=== PATIENT | female | born 1950 | race Caucasian/White ===

== ENCOUNTER → 2017-11-21 08:58 | Outpatient (CLI) | payer MEDICARE, SELFPAY ==
--- NOTE | 2017-11-21 09:00 | DI.RAD.S_ITS ---
PROCEDURE: XR LUMBAR SPINE MIN 4V INDICATIONS: Spinal stenosis with left lower extremity radiculopathy TECHNIQUE: 5 views of the lumbar spine were acquired. COMPARISON: None. FINDINGS: Bones: No fracture or focal osseous destruction. There is partially visualized levocurvature of the lower thoracic spine. Multilevel facet arthropathy. There is grade 1 anterolisthesis of L4 on L5. Uzwe-ho-rlhoghdo narrowing of the L4-L5 and L5-S1 disc space. There is mild narrowing of the remaining lumbar disc spaces. Mild bilateral hip degeneration. Pulse generator and leads project in the right pelvis Soft tissues: Overlying bowel gas pattern is normal. No suspicious soft tissue calcifications. Oblique images: No pars defects. IMPRESSION: Levocurvature of the lower thoracic spine, partially visualized. Grade 1 anterolisthesis of L4 and L5. Lower lumbar disc degeneration and facet arthropathy as above. Dictated by: Chico Back M.D. on 11/21/2017 at 10:48 Approved by: Chico Back M.D. on 11/21/2017 at 10:50
--- NOTE | 2017-11-21 09:02 | DI.CT.S_ITS ---
PROCEDURE: CT LUMBAR SPINE WO CON INDICATIONS: lower back pain with left sciatica TECHNIQUE: Noncontrast 3 mm thick sections acquired from the T12 level to the sacrum. Sagittal and coronal reformats were constructed. For radiation dose reduction, the following was used: automated exposure control. COMPARISON: [facility], MR, L-SPINE WITHOUT CONTRAST, 09/14/2009, 15:53. [facility], CT, KIDNEY/ URETER/BLADDER, 03/25/2012, 14:54. [facility], CR, XR LUMBAR SPINE MIN 4V, 11/21/2017, 8:40. FINDINGS: Image quality: Excellent. Bones: No acute vertebral body compression fractures. No suspicious lytic or blastic bony lesions. Central spinal caliber is of normal overall caliber. No pars defects. Mild dextroconvex scoliotic curvature is seen. Grade 1 anterolisthesis is seen at the L4-L5 level, without associated pars defects. At this level, there is mild shift to the right of L4 on L5, as on coronal image 27. T12-L1: Normal. L1-L2: Normal. L2-L3: Normal. L3-L4: The disc height is well preserved. Mild to moderate disc bulge is seen, which is eccentric to the right. There is mild right-sided and no significant left-sided neural foraminal narrowing seen. Mild central canal narrowing is seen. L4-L5: The disc height is relatively well-preserved. Mild generalized disc bulge is seen. Prominent facet hypertrophy is seen. There is moderate left-sided and moderate to severe right-sided neural foraminal narrowing seen. Moderate to severe central canal narrowing is seen. L5-S1: The disc height is relatively well-preserved. Minimal disc bulge is seen. There is moderate right-sided and mild left-sided facet hypertrophy seen. No significant neural foraminal or central canal narrowing are seen. Soft tissues: No retroperitoneal masses or hematomas. Visualized aorta is normal in caliber. A right-sided sacral stimulator is seen. IMPRESSION: Focal L4-L5 degenerative change, with milder degenerative changes seen elsewhere. Compared to 2009, the degenerative changes have progressed. Right-sided sacral stimulator. Dictated by: Mikie Fortune M.D. on 11/21/2017 at 9:54 Approved by: Mikie Fortune M.D. on 11/21/2017 at 10:00
== END ==
PROVIDERS: PCP Internal Medicine; Visit Provider Physical Medicine & Rehabilitation
DX: M51.16 Intervertebral disc disorders with radiculopathy, lumbar region (principal); M47.27 Other spondylosis with radiculopathy, lumbosacral region; M48.061 Spinal stenosis, lumbar region without neurogenic claudication; M16.0 Bilateral primary osteoarthritis of hip; M43.16 Spondylolisthesis, lumbar region
CPT/HCPCS: 72110; 72131

== ENCOUNTER 2017-11-28 08:52 | Outpatient (CLI) | payer MEDICARE, SELFPAY ==
--- NOTE | 2017-11-28 08:53 | DI.RAD.S_ITS ---
PROCEDURE: PAIN L/S TRANSFORAMINAL INJECT INDICATIONS: Spinal stenosis, FINDINGS: Fluoroscopic spot filming was performed to verify placement of spinal needles at the left L4-L5 foramen level(s), as labeled on the films. Appropriate location(s) of the needle tip(s) was confirmed by injection of iodinated contrast. IMPRESSION: Successful needle tip localization for left sided transforaminal epidural steroid injection at the L4-5 level. Dictated by: Man Talbert M.D. on 11/28/2017 at 15:37 Approved by: Mna Talbert M.D. on 11/28/2017 at 15:38
[2017-11-28 08:57] VITALS: BP 122/63; PULSE 70; RESP 18; TEMP 36.1; O2SAT 97
[2017-11-28 09:51] VITALS: BP 139/75; PULSE 70; RESP 16; O2SAT 96
[2017-11-28 09:56] VITALS: BP 126/56; PULSE 65; RESP 16; O2SAT 97
[2017-11-28] MEDS: IOPAMIDOL 15 ML VIAL 3 ML INJ (09:59)
[2017-11-28] MEDS: BUPIVACAINE 0.25% (PF) VIAL 2 ML INJ (09:59)
[2017-11-28] MEDS: methylPREDNISolone acetate 80 MG/ML VIAL INJ (09:59)
[2017-11-28] MEDS: DEXAMETHASONE 10 MG/ML VIAL 20 MG INJ (09:59)
[2017-11-28 10:01] VITALS: BP 118/57; PULSE 67; RESP 16; O2SAT 96
--- NOTE | 2017-11-28 10:07 | P.PCN_ITS ---
Procedures Date/Time Date of procedure: 11/28/17 Time of procedure: 10:06 General Procedure description: PREOP DIAGNOSIS 1. FORMAINAL STENOSIS WITH LE SYMPTOMS POST OP DIAGNOSIS 1. FORMAINAL STENOSIS WITH LE SYMPTOMS PROCEDURES 1. FLUOROSCOPICALLY GUIDED CONTRAST CONTROLLED TRANSFORAMINAL EPIDURAL STEROID INJECTION - LEFT L4/5 PHYSICIAN: Deni Ramos DO INDICATIONS: Casandra is referred by Dr. Granger for treatment of Foraminal Stenosis with Left LE Symptoms FINDINGS Foraminal Nerve Root Compression secondary to disc disease and facet hypertrophy DESCRIPTION OF PROCEDURE: Following denial of allergy and review of potential side effects and complications, including, but not necessarily limited to, infection, allergic reaction, local tissue breakdown, stroke, temporary or permanent nerve injury, paralysis, and possible , the patient indicated that the patient understood and agreed to proceed. An informed consent document was signed by the patient, witnessed by a nurse, and placed in the patient's chart. Additionally, other treatment options including medications, modalities, and physical therapy were reviewed with the patient. After review of previous anaesthesic history and IV conscious sedation the patient was deemed safe to proceed with todays procedure with IV conscious sedation as ASA class II designation. Safety time-out was performed to confirm patient ID, procedure to be performed and site of procedure. IV sedation was deemed unnecessary and thus not administered by the RN after DO order, during the course of the procedure while the patient remained responsive to all verbal commands In the prone position following sterile prep and drape of the lumbar region, the left L4/5 posterior neuroforamen was identified fluoroscopically. The skin was anesthetized via a 25-gauge 1.5-inch needle with 1% lidocaine solution. At this point, a 25-gauge 3.5-inch spinal needle was atraumatically introduced and advanced under fluoroscopic guidance through the posterior left L4/5 neuroforamen to approximately the anterior aspect of the canal. Depth was confirmed on lateral view. Following negative aspiration, injection of approximately 1.5 cc of Isovue 200 under live fluoroscopy in the AP view confirmed excellent flow along the nerve root, into the epidural space without vascular or intrathecal uptake observed Radiological data, including multiple fluoroscopic views of the lumbosacral spine, reveal a spinal needle at the left L4/5 posterior neuroforamen. Subsequent views show flow of contrast material flowing superiorly and inferiorly along the nerve root confirming epidural flow. Subsequently, a test dose of 1.5 cc of 1% lidocaine solution was administered and patient was observed for two minutes for signs or symptoms of complications , including abdominal pain, shortness of breath, bilateral upper or lower extremity weakness, nausea and vomiting, prior to steroid injection. At this point, a total of 3 cc or 20 mg of dexamethasone and 80mg Depo Medrol was injected without incident. The procedure tolerated the procedure well without signs or symptoms of complications prior to transfer to the recovery area continued monitoring without incident. The patient was then transferred to the recovery area where they were observed for an appropriate time after the injection. The patient reported a VAS score of 7 prior to the procedure and a post- procedure VAS of 0. Total Fluoroscopy Time: 20.9 seconds Total Conscious Sedation Time: 24min POST OP INSTRUCTIONS The patient was provided a Pain Log to continue to record their response to the target-specific procedure prior to follow-up visit with their referring physician. Additionally, specific post-injection care instructions and a contact number to our office were provided if concerns arise regarding possible complications associated with the procedure are suspected. Deni Ramos DO Complications: none
[2017-11-28 10:10] VITALS: BP 130/72; PULSE 64; RESP 16; O2SAT 97
== END 2017-11-28 10:18 ==
LOC: RAD 08:53
PROVIDERS: PCP Internal Medicine; Visit Provider Physical Medicine & Rehabilitation
DX: M48.062 Spinal stenosis, lumbar region with neurogenic claudication (principal); M51.16 Intervertebral disc disorders with radiculopathy, lumbar region
CPT/HCPCS: 64483; J1040; J1100; J2250

== ENCOUNTER → 2018-06-04 10:04 | Outpatient (CLI) | payer MEDICARE, SELFPAY ==
--- NOTE | 2018-06-04 | DI.MG.S_ITS ---
BILATERAL DIGITAL SCREENING MAMMOGRAM 3D/2D WITH CAD: 06/04/2018 CLINICAL: Routine screening. Comparison is made to exams dated: 05/23/2017 mammogram, 11/11/2008 mammogram, 05/18/2000 mammogram - [facility], 06/08/2017 stereotactic biopsy [facility], [facility]. The tissue of both breasts is heterogeneously dense. This may lower the sensitivity of mammography. Current study was also evaluated with a Computer Aided Detection (CAD) system. There are benign vascular calcifications in the right breast. There also is a benign biopsy clip in the right breast. No significant masses, calcifications, or other findings are seen in either breast. There has been no significant interval change. IMPRESSION: There is no mammographic evidence of malignancy. A 1 year screening mammogram is recommended. This exam was interpreted at Station ID: [id number]. NOTE: For mammograms, a report in lay terms will be sent to the patient. Approximately 15% of breast malignancies will not be visualized mammographically. In the management of a palpable breast mass, a negative mammogram must not discourage biopsy of a clinically suspicious lesion. Electronically Signed By: Jordy osborne/bayron:06/04/2018 12:34:13 letter sent: Normal Exam ACR BI-RADS Category 2: Benign Finding(s) [id number]
== END ==
PROVIDERS: PCP Internal Medicine; Visit Provider Internal Medicine
DX: Z12.31 Encounter for screening mammogram for malignant neoplasm of breast (principal)
CPT/HCPCS: 77063; 77067

== ENCOUNTER → 2019-03-19 10:54 | Outpatient (CLI) | payer MEDICARE, SELFPAY ==
[2019-03-19 12:14] LABS: Alanine Aminotransferase 26 IU/L (<35); Albumin 4.2 g/dL (3.5-5.0); Albumin Globulin Ratio 1.5 (1.0-2.8); Alkaline Phosphatase 100 U/L (38-126); Aspartate Aminotransferase 28 IU/L (14-36); Bilirubin Total 0.3 mg/dL (0.2-1.3); Blood Urea Nitrogen 18 mg/dL (7-17); Calcium 9.5 mg/dL (8.4-10.2); Carbon Dioxide 29 mmol/L (22-32); Chloride 107 mmol/L (98-107); Cholesterol 161 mg/dL (140-199); Estimated Glomerular Filt Rate > 60.0 mL/min (>60); Globulin 2.8 g/dL (1.7-4.1); Glucose 92 mg/dL (80-110); HDL Cholesterol 46 mg/dL (40-60); HEMOLYSIS < 15 (0-50); LDL Cholesterol Calculated 84 mg/dL (<100); Potassium 4.5 mmol/L (3.4-5.1); Sodium 144 mmol/L (137-145); Triglycerides 154 mg/dL (35-150)
[2019-03-19 12:42] LABS: Free T4, Direct Thyroxine 1.43 ng/dL (0.78-2.19)
[2019-03-19 12:56] LABS: Thyroid Stimulating Hormone 0.93 uIU/mL (0.47-4.68)
== END ==
PROVIDERS: PCP Internal Medicine; Visit Provider Internal Medicine
DX: E03.9 Hypothyroidism, unspecified (principal); E78.5 Hyperlipidemia, unspecified
CPT/HCPCS: 36415; 80053; 80061; 84439; 84443

== ENCOUNTER → 2019-03-22 16:18 | Outpatient (CLI) | payer MEDICARE, SELFPAY ==
--- NOTE | 2019-03-22 16:20 | DI.RAD.S_ITS ---
PROCEDURE: XR CHEST 2V INDICATIONS: Wheeze, cough x 3 weeks r/o pneumonia TECHNIQUE: 2 views of the chest were acquired. COMPARISON: [facility], , CHEST 1 VIEW, 11/12/2007, 9:19. FINDINGS: Surgical changes and devices: None. Lungs and pleura: Lungs are clear. No pleural effusions or pneumothorax. Mediastinum: Mediastinal contours are normal. Heart size is normal. Bones and chest wall: No suspicious bony abnormalities. Soft tissues appear unremarkable. IMPRESSION: Negative chest. No acute cardiopulmonary process is evident. Dictated by: Ketan Clayton M.D. on 03/22/2019 at 15:31 Approved by: Ketan Clayton M.D. on 03/22/2019 at 15:32
== END ==
PROVIDERS: Family Provider Internal Medicine; PCP Internal Medicine; Visit Provider Nurse Practitioner
DX: R05 Cough (principal); R06.2 Wheezing
CPT/HCPCS: 71046

== ENCOUNTER → 2019-04-07 13:41 | Outpatient (CLI) | payer MEDICARE, SELFPAY ==
[2019-04-07 17:22] LABS: Clostridium Difficile Tox PCR Negative for C. diff
== END ==
PROVIDERS: Family Provider Internal Medicine; PCP Internal Medicine; Referring Provider Internal Medicine; Visit Provider Internal Medicine
DX: R19.7 Diarrhea, unspecified (principal)
CPT/HCPCS: 87493

== ENCOUNTER → 2019-10-14 08:57 | Outpatient (CLI) | payer MEDICARE, SELFPAY ==
--- NOTE | 2019-10-14 09:01 | DI.RAD.S_ITS ---
PROCEDURE: XR LUMBAR SPINE MIN 4V INDICATIONS: lumbar pain TECHNIQUE: 5 views of the lumbar spine were acquired. COMPARISON: [facility], , XR LUMBAR SPINE MIN 4V, 11/21/2017, 8:40. FINDINGS: Bones: No fracture. Multilevel degenerative endplate sclerosis and spurring. Diffuse facet arthropathy. Grade 1 anterolisthesis of L4 on L5, unchanged. Moderate narrowing of the L4-L5 disc space. Mild narrowing of the remaining lumbar disc spaces. Partially visualized levocurvature of the thoracolumbar junction. Soft tissues: Overlying bowel gas pattern is normal. No suspicious soft tissue calcifications. Incidentally noted pulse generator and electrodes projecting in the right pelvis. Oblique images: No pars defects. IMPRESSION: Multilevel lumbar spondylosis, and grade 1 anterolisthesis of L4 on L5. No interval change since 11/21/17. Diffuse facet arthropathy. Dictated by: Chico Back M.D. on 10/14/2019 at 9:58 Approved by: Chico Back M.D. on 10/14/2019 at 9:59
== END ==
PROVIDERS: Family Provider Internal Medicine; PCP Internal Medicine; Referring Provider Physical Medicine & Rehabilitation; Visit Provider Physical Medicine & Rehabilitation
DX: M54.5 Low back pain (principal); M43.16 Spondylolisthesis, lumbar region; M47.27 Other spondylosis with radiculopathy, lumbosacral region
CPT/HCPCS: 72110

== ENCOUNTER → 2020-01-26 10:22 | Outpatient (CLI) | payer MEDICARE, SELFPAY ==
[2020-01-26 12:32] LABS: COVID19 -Nasal RAPID Negative (Negative)
== END ==
PROVIDERS: Family Provider Internal Medicine; PCP Internal Medicine; Visit Provider Physical Medicine & Rehabilitation
DX: Z11.59 Encounter for screening for other viral diseases (principal)
CPT/HCPCS: 87635; C9803

== ENCOUNTER 2020-01-27 09:05 | Outpatient (CLI) | payer MEDICARE, SELFPAY ==
--- NOTE | 2020-01-27 09:07 | DI.RAD.S_ITS ---
PROCEDURE: PAIN L INTERLAMINAR/CAUDAL INJ INDICATIONS: SPONDYLOSIS COMPARISON: [facility], CR, XR LUMBAR SPINE MIN 4V, 10/14/2019, 8:51. FINDINGS: Fluoroscopic spot filming was performed to verify placement of a spinal needle at the L4-L5 level, as labeled on the films. Appropriate location of the needle tip was confirmed by injection of iodinated contrast. IMPRESSION: Intraprocedural examination within normal limits. Dictated by: Mikie Fortune M.D. on 01/27/2020 at 9:49 Approved by: Mikie Fortune M.D. on 01/27/2020 at 9:50
[2020-01-27 09:16] VITALS: BP 141/69; PULSE 75; RESP 15; TEMP 36.5; O2SAT 97
[2020-01-27 09:39] VITALS: BP 187/95; PULSE 69; RESP 17; O2SAT 98
[2020-01-27] MEDS: BUPIVACAINE 0.25% (PF) VIAL 2 ML INJ (09:40)
[2020-01-27] MEDS: DEXAMETHASONE 10 MG/ML VIAL 20 MG INJ (09:41)
[2020-01-27] MEDS: IOPAMIDOL 15 ML VIAL 3 ML INJ (09:41)
[2020-01-27] MEDS: BETAMETHASONE 30 MG/5 ML MDV 6 MG INJ (09:41)
[2020-01-27 09:43] VITALS: BP 183/84; PULSE 64; RESP 17; O2SAT 99
--- NOTE | 2020-01-27 09:50 | P.PCN_ITS ---
Date/Time/Diagnoses Date of procedure: 01/27/20 Time of procedure: 09:50 Pre-procedure diagnosis: 1. HNP WITH RADICULAR FEATURES, 2. MULTILEVEL CENTRAL STENOSIS, Post-procedure diagnosis: same Procedure Notes Procedure: 1. FLUOROSCOPICALLY GUIDED CONTRAST CONTROLLED INTERLAMINAR EPIDURAL STEROID INJECTION -L4/5 Indications: Casandra is referred by Dr. Granger for treatment of Bilateral Foraminal Stenosis R>L LE symptoms. Physician: Deni Ramos Total Fluoroscopy time (seconds): 5 Total sedation minutes: 7 Complications: none Procedure in detail & Post-procedure care: FINDINGS Multilevel Central Spinal Stenosis with Nerve Root Compression DESCRIPTION OF PROCEDURE Fluoroscopically guided, contrast-controlled L4/5 translaminar epidural steroid injection. Following review of allergy and review of potential side effects and complications, including, but not necessarily limited to, infection, allergic reaction, local tissue breakdown, temporary as well as permanent nerve injury, paralysis, stroke and possible , the patient indicated that the patient understood and agreed to proceed. An informed consent document was signed by the patient, witnessed by a nurse, and placed in the patient's chart. Additionally, other treatment options including modalities, medications, and physical therapy were reviewed with the patient. After review of previous anaesthesic history and IV conscious sedation the patient was deemed safe to proceed with today?s procedure with IV conscious sedation as ASA class II designation. Safety time-out was performed to confirm patient ID, procedure to be performed and site of procedure. IV sedation was deemed unnecessary and thus not administered by the RN after DO order, titrated to patient comfort during the course of the procedure while the patient remained responsive to all verbal commands In the prone position, following sterile prep and drape of the lumbar region, the L4/5 translaminar space was identified fluoroscopically. The skin was anesthetized via a 25-gauge, 1.5inch needle with 1% lidocaine solution. At this point, a 22-gauge short bevel spinal needle was atraumatically introduced and advanced under fluoroscopic guidance into the region of the L4/5 translaminar space. Depth was confirmed on lateral view. Radiological data, including multiple fluoroscopic views of the lumbar spine, reveal a spinal needle at the L4/5 translaminar space. Lateral views then show placement of the needle in the epidural space. Subsequent views show contrast material flowing superiorly and inferiorly in the epidural space. No vascular or intrathecal uptake is observed. At this point, using loss of resistance technique with saline and air, the epidural space was entered. This was confirmed following negative aspiration with injection of approximately 1.5cc of Isovue 200, showing excellent epidural flow without vascular or intrathecal uptake. At this point, 1cc of 1% lidocaine solution combined with 3cc or 20mg of dexamethasone and 6mg betamethasone was injected without incident. The patient tolerated the procedure well without signs or symptoms of complications prior to transfer to the recovery area continued monitoring without incident. The patient was then transferred to the recovery area where they were observed for an appropriate period of time after the injection. The patient reported a VAS score of 6 prior to the procedure and a post- procedure VAS of 0. POST OP INSTRUCTIONS The patient was provided a Pain Log to continue to record their response to the target-specific procedure prior to follow-up visit with their referring physician. Additionally, specific post-injection care instructions and a contact number to our office were provided if concerns arise regarding possible complications associated with the procedure are suspected.
[2020-01-27 09:51] VITALS: BP 144/67; PULSE 71; RESP 17; O2SAT 96
[2020-01-27 09:56] VITALS: BP 148/72; PULSE 66; RESP 18; O2SAT 97
== END 2020-01-27 10:00 | disposition home or self-care (01) ==
LOC: RAD 09:06
PROVIDERS: Family Provider Internal Medicine; PCP Internal Medicine; Referring Provider Internal Medicine; Visit Provider Physical Medicine & Rehabilitation
DX: M51.16 Intervertebral disc disorders with radiculopathy, lumbar region (principal); M48.061 Spinal stenosis, lumbar region without neurogenic claudication
CPT/HCPCS: 62323; J0702; J1100; J2250; J3010

== ENCOUNTER 2020-10-11 17:32 | Emergency (ER) | payer MEDICARE, SELFPAY ==
[2020-10-11] VITALS (9 sets, daily range): BP systolic 139–150; BP diastolic 63–74; PULSE 67–82; RESP 14–24; TEMP 36.4; O2SAT 94–97; BMI 34.3
--- NOTE | 2020-10-11 17:44 | DI.RAD.S_ITS ---
PROCEDURE: XR CHEST 1V INDICATIONS: chest pain TECHNIQUE: One view of the chest was acquired. COMPARISON: [facility], CR, XR CHEST 2V, 03/22/2019, 16:17. FINDINGS: Surgical changes and devices: None. Lungs and pleura: Mild generalized interstitial prominence can be seen. No pleural effusions or pneumothorax. Mediastinum: Mediastinal contours appear normal. Heart size is mildly enlarged. Bones and chest wall: No suspicious bony lesions. Overlying soft tissues appear unremarkable. IMPRESSION: Mild cardiomegaly and interstitial prominence. Please consider early/mild CHF. Dictated by: Mikie Fortune M.D. on 10/11/2020 at 17:01 Approved by: Mikie Fortune M.D. on 10/11/2020 at 17:02
[2020-10-11 17:55] LABS: Add Manual Diff / Slide Review NO; Basophils Absolute Auto 100 /uL (0-100); Basophils Percent Auto 1.2 % (0-2); Eosinophils Absolute Auto 500 /uL (0-450); Hematocrit 40.1 % (36-46); Hemoglobin 13.4 g/dL (12.0-16.0); Lymphocytes Absolute Auto 2000 /uL (1100-4500); Lymphocytes Percent Auto 25.3 % (25-40); Mean Corpuscular HGB Conc 33.4 % (30-36); Mean Corpuscular Hemoglobin 30.4 PG (26-34); Mean Corpuscular Volume 91.2 fL (80-100); Monocytes Absolute Auto 600 /uL (0-900); Neutrophils Absolute Auto 4800 /uL (1500-7000); Neutrophils Percent Auto 60.5 % (50-75); Platelet Count 247 X10^3/uL (150-400); White Blood Cell Count 7.9 X10^3/uL (4.5-11.0)
[2020-10-11 18:02] LABS: Alanine Aminotransferase 32 IU/L (<35); Albumin 4.3 g/dL (3.5-5.0); Albumin Globulin Ratio 1.5 (1.0-2.8); Alkaline Phosphatase 93 U/L (38-126); Aspartate Aminotransferase 38 IU/L (14-36); BUN Creatinine Ratio 28.1 (6-22); Bilirubin Total 0.3 mg/dL (0.2-1.3); Blood Urea Nitrogen 25 mg/dL (7-17); Calcium 9.6 mg/dL (8.4-10.2); Carbon Dioxide 29 mmol/L (22-32); Chloride 104 mmol/L (98-107); Creatine Kinase 299 U/L (30-135); Estimated Glomerular Filt Rate > 60.0 mL/min (>60); Globulin 2.9 g/dL (1.7-4.1); Glucose 93 mg/dL (80-110); Lipase 146 U/L (23-300); Magnesium 2.1 mg/dL (1.6-2.3); Sodium 138 mmol/L (137-145); Total Protein 7.2 g/dL (6.3-8.2)
--- NOTE | 2020-10-11 18:04 | ED.CHESTPAIN ---
HPI - Chest Pain General Chief Complaint: Chest Pain Stated Complaint: High BP, Pain Radiating into Jaw Time Seen by Provider: 10/11/20 17:57 Source: patient Mode of arrival: Ambulatory Limitations: no limitations History of Present Illness HPI narrative: 70-year-old female nonsmoker with noncontributory medical history her in the chief complaint of bilateral jaw discomfort for the past few hours. She states that she was just sitting on the couch when she started feeling a bit funny, took her blood pressure and found it to be in the 180s which is quite high for her. She denies any headache or blurred vision. She denies any chest pain or shortness of breath. She denies nausea, vomiting or fever. She denies abdominal pain or trouble urinating. She has had no recent change in diet or medications but says she has been quite worn down from increased work duties and just retired. She recently took 0 week vacation which was somewhat helpful but has been on some large projects at home. Related Data Home Medications Medication Instructions Recorded Confirmed MULTIVITAMIN (One Daily 1 tab PO Q DAY #0 05/10/11 04/12/20 Multivitamin) Previous Rx's Medication Instructions Recorded bupropion HCl 150 mg 24 hr tablet, 150 mg PO QAM #30 tab 10/13/19 extended release celecoxib 200 mg capsule (Celebrex) 200 mg PO Q DAY #90 cap 05/28/20 fluoxetine 40 mg capsule 40 mg PO DAILY #90 cap 06/28/20 levothyroxine 112 mcg tablet 112 mcg PO QAM #90 tab 06/28/20 simvastatin 40 mg tablet 20 mg PO Q DAY #45 tab 06/28/20 trazodone 100 mg tablet 100 mg PO HS #90 tab 06/28/20 Allergies Allergy/AdvReac Type Severity Reaction Status Date / Time No Known Drug Allergies Allergy Verified 04/12/20 08:06 Review of Systems Review of Systems Narrative: GENERAL: Denies chills, fatigue, malaise, fever, sweats. HEENT: Denies sinus pain, ear pain, sore throat, difficulty swallowing, dizziness. RESPIRATORY: Denies dyspnea, cough, wheezing, hemoptysis, sputum. CARDIOVASCULAR: See HPI GASTROINTESTINAL: Denies nausea, vomiting, abdominal pain, diarrhea, constipation, melena. : Denies dysuria, frequency, incontinence, hematuria, urinary retention. MUSCULOSKELETAL: denies weakness, joint pain, or bony pain SKIN: Denies rash, skin lesions, or other NEUROLOGIC: Denies weakness, headache, numbness, change in speech, confusion, seizures, incoordination. PSYCHIATRIC: No concerning psychosocial issues. 12 point review of systems is negative except for those stated above 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 Calculus of kidney (05/01/13) Depression (05/10/11) Facet arthropathy, lumbar Hyperlipidemia (05/10/11) Lumbosacral spondylosis with radiculopathy Menopausal syndrome (04/08/03) Polymyalgia rheumatica (03/02/03) Sacral dysfunction Spondylolisthesis at L4-L5 level Systemic lupus erythematosus (12/19/01) Surgical History Status post breast biopsy Family History Mother Family history of TIAs Social History Smoking Status: Never smoker Smoking Status: Never smoker Substance Use Type: does not use Exam Narrative Exam Narrative: 70] year old patient appears stated age. Well-developed patient, in mild distress. HEAD: Atraumatic. Normocephalic. EYES: Pupils equal round and reactive. Extraocular motions intact. No scleral icterus. No injection or drainage. ENT: Nose without bleeding, purulent drainage. Throat without erythema, tonsillar hypertrophy or exudate. Airway patent. NECK: Trachea midline. Non tender CARDIOVASCULAR: Regular rate and rhythm without murmurs, gallops, or rubs. RESPIRATORY: Clear to auscultation. Breath sounds equal bilaterally. No wheezes, rales, or rhonchi. GASTROINTESTINAL: Abdomen soft, non-tender, nondistended. EXTREMITIES: No edema or joint tenderness. BACK: Nontender without deformity or crepitance. No flank tenderness. NEURO: AOx3. SKIN: No rash or erythema of visible areas Initial Vital Signs Initial Vital Signs: Vital Signs Temperature 97.6 F 10/11/20 17:44 Pulse Rate 82 10/11/20 17:44 Respiratory Rate 16 10/11/20 17:44 Blood Pressure 150/74 H 10/11/20 17:44 Pulse Oximetry 97 10/11/20 17:44 Scores HEART Score Heart Score history: Slightly Suspicious Heart Score EKG: Normal Heart Score Age: > or = 65 years old Heart Score risk factors: 1-2 risk factors Heart Score troponin: < or = to normal limit Heart Score Total: 3 Course Orders Ordered: ED Orders 10/11/20 17:44 XR chest 1V Stat EKG-12 Lead Stat 10/11/20 17:45 BNP [NT-proBNP (BNP-Adult 18+)] Stat Complete Blood Count AUTO DIFF Stat Comprehensive Metabolic Panel Stat Lipase Stat Magnesium Stat Troponin & CK Cardiac Panel Stat 10/11/20 19:17 EKG-12 Lead Stat 10/11/20 19:45 Troponin I Stat Vital Signs Vital signs: Vital Signs - 8 hr 10/11/20 17:44 10/11/20 18:05 10/11/20 18:17 Temperature 97.6 F Pulse Rate 82 75 77 Respiratory Rate 16 17 24 Blood Pressure 150/74 H 139/63 Pulse Oximetry 97 96 96 10/11/20 18:32 10/11/20 19:00 10/11/20 19:30 Temperature Pulse Rate 82 70 67 Respiratory Rate 14 23 18 Blood Pressure Pulse Oximetry 94 95 95 10/11/20 20:00 10/11/20 20:30 10/11/20 21:00 Temperature Pulse Rate 67 71 69 Respiratory Rate 19 20 20 Blood Pressure Pulse Oximetry 95 95 96 MDM - Chest Pain Lab Data Result diagrams: 10/11/20 17:45 10/11/20 17:45 Labs: Lab Results 10/11/20 10/11/20 10/11/20 Range/Units 17:45 17:45 17:45 WBC 7.9 (4.5-11.0) X10^3/uL RBC 4.40 (4.0-5.2) X10^6/uL Hgb 13.4 (12.0-16.0) g/dL Hct 40.1 (36-46) % MCV 91.2 (80-100) fL MCH 30.4 (26-34) PG MCHC 33.4 (30-36) % RDW 14.0 (11.6-14.8) % Plt Count 247 (150-400) X10^3/uL Neut % (Auto) 60.5 (50-75) % Lymph % (Auto) 25.3 (25-40) % Davis % (Auto) 7.0 (3-14) % Eos % (Auto) 6.0 H (2-4) % Baso % (Auto) 1.2 (0-2) % Neut # (Auto) 4800 (3309-5501) /uL Lymph # (Auto) 2000 (6296-8443) /uL Davis # (Auto) 600 (0-900) /uL Eos # (Auto) 500 H (0-450) /uL Baso # (Auto) 100 (0-100) /uL Sodium 138 (137-145) mmol/L Potassium 4.0 (3.4-5.1) mmol/L Chloride 104 (98-107) mmol/L Carbon Dioxide 29 (22-32) mmol/L BUN 25 H (7-17) mg/dL Creatinine 0.89 (0.52-1.04) mg/dL Estimated GFR > 60.0 (>60) mL/min BUN/Creatinine Ratio 28.1 H (6-22) Glucose 93 (80-110) mg/dL Calcium 9.6 (8.4-10.2) mg/dL Magnesium 2.1 (1.6-2.3) mg/dL Total Bilirubin 0.3 (0.2-1.3) mg/dL AST 38 H (14-36) IU/L ALT 32 (<35) IU/L Alkaline Phosphatase 93 (38-126) U/L Total Creatine Kinase 299 H (30-135) U/L CK-MB (CK-2) 1.01 (<2.37) ng/mL CK-MB (CK-2) Rel Index 0.3 L (1.5-5.0) % Troponin I < 0.012 (0.01-0.034) ng/mL NT-Pro-B Natriuret Pep 52 (<125) pg/mL Total Protein 7.2 (6.3-8.2) g/dL Albumin 4.3 (3.5-5.0) g/dL Globulin 2.9 (1.7-4.1) g/dL Albumin/Globulin Ratio 1.5 (1.0-2.8) Lipase 146 (23-300) U/L 10/11/20 Range/Units 19:45 WBC (4.5-11.0) X10^3/uL RBC (4.0-5.2) X10^6/uL Hgb (12.0-16.0) g/dL Hct (36-46) % MCV (80-100) fL MCH (26-34) PG MCHC (30-36) % RDW (11.6-14.8) % Plt Count (150-400) X10^3/uL Neut % (Auto) (50-75) % Lymph % (Auto) (25-40) % Davis % (Auto) (3-14) % Eos % (Auto) (2-4) % Baso % (Auto) (0-2) % Neut # (Auto) (4687-5613) /uL Lymph # (Auto) (8501-7581) /uL Davis # (Auto) (0-900) /uL Eos # (Auto) (0-450) /uL Baso # (Auto) (0-100) /uL Sodium (137-145) mmol/L Potassium (3.4-5.1) mmol/L Chloride (98-107) mmol/L Carbon Dioxide (22-32) mmol/L BUN (7-17) mg/dL Creatinine (0.52-1.04) mg/dL Estimated GFR (>60) mL/min BUN/Creatinine Ratio (6-22) Glucose (80-110) mg/dL Calcium (8.4-10.2) mg/dL Magnesium (1.6-2.3) mg/dL Total Bilirubin (0.2-1.3) mg/dL AST (14-36) IU/L ALT (<35) IU/L Alkaline Phosphatase (38-126) U/L Total Creatine Kinase (30-135) U/L CK-MB (CK-2) (<2.37) ng/mL CK-MB (CK-2) Rel Index (1.5-5.0) % Troponin I < 0.012 (0.01-0.034) ng/mL NT-Pro-B Natriuret Pep (<125) pg/mL Total Protein (6.3-8.2) g/dL Albumin (3.5-5.0) g/dL Globulin (1.7-4.1) g/dL Albumin/Globulin Ratio (1.0-2.8) Lipase (23-300) U/L Imaging Data Chest x-ray: Radiologist's Impression: [place] [id number] [place] [id number] ReportSigned Patient: Casandra Saleh JMR#: [id number]: 2Acct:[id number]/Sex: 70 / FDate of Service: 10/11/20Loc: EDAccession Number: [id number] Procedure: XR chest 1V Ordering Provider: Marshall Souza D.O. PROCEDURE: XR CHEST 1V INDICATIONS: chest pain TECHNIQUE: One view of the chest was acquired. COMPARISON: [facility], , XR CHEST 2V, 03/22/2019, 16:17. FINDINGS: Surgical changes and devices: None. Lungs and pleura: Mild generalized interstitial prominence can be seen. No pleural effusions or pneumothorax. Mediastinum: Mediastinal contours appear normal. Heart size is mildly enlarged. Bones and chest wall: No suspicious bony lesions. Overlying soft tissues appear unremarkable. IMPRESSION: Mild cardiomegaly and interstitial prominence. Please consider early/mild CHF. Dictated by: Mikie Fortune M.D. on 10/11/2020 at 17:01 Approved by: Mikie Fortune M.D. on 10/11/2020 at 17:02 ECG Data Interpretation: EKG is normal sinus rhythm rate [ 77] and free of any signs of ischemia or ectopy. No ST segmental elevation or depression. No T wave inversions MDM Narrative Medical decision making narrative: Multiple causes of chest pain considered including OH, PE, pneumothorax, pneumonia, aortic dissection, and pleurisy. Patient reports no radiation, no diaphoresis, no provocation with exertion, and no vomiting Multiple EKGs without occlusive findings. Troponin x2 negative. Resolution of symptoms nearly immediately upon arrival Patient's symptoms improved over duration of stay with above-stated therapies. Findings and discharge diagnosis discussed with patient/family followed by verbalization of understanding Return precautions discussed with patient/family whom verbalize understanding. Discharge Plan Departure Patient Disposition: Home Clinical Impression: Atypical chest pain Instructions: DI for Atypical Chest Pain Activity Restrictions/Additional Instructions: *You have been diagnosed with [atypical chest pain, physical exam, labs and EKGs are very reassuring] *What to do: *Please continue to take your regular medications as directed. [ ] New medication prescriptions sent to your pharmacy: [ ] [ ] New medication written as a paper prescription [x ] No new medications given *Please follow up with your primary care provider in 2-3 days, call for an appointment. Let them know you were seen in the Emergency Department and that we ask that you be seen in follow up. We will electronically transmit a record of today's note if your PCP is in our system *If you do not have a primary care provider please contact the [facility] Resource line at [phone]. They will ask some questions about your medical history and help get you set up with a doctor in the community. *Return to Emergency Department if you should have any new, worsening or concerning symptoms, such as [fever greater than 101 F, shaking chills, worsening pain, persistent vomiting or other bothersome symptoms] Prescriptions: No Action MULTIVITAMIN (One Daily Multivitamin) 1 tab PO Q DAY Qty: 0 RF: 0 celecoxib [Celebrex] 200 mg capsule 200 mg PO Q DAY Qty: 90 RF: 3 levothyroxine 112 mcg tablet 112 mcg PO QAM Qty: 90 RF: 0 fluoxetine 40 mg capsule 40 mg PO DAILY Qty: 90 RF: 0 trazodone 100 mg tablet 100 mg PO HS Qty: 90 RF: 0 simvastatin 40 mg tablet 20 mg PO Q DAY Qty: 45 RF: 0 bupropion HCl 150 mg tablet extended release 24 hr 150 mg PO QAM Qty: 30 RF: 7 Referrals: Josue Granger MD [Primary Care Provider] -
[2020-10-11 18:14] LABS: Troponin I < 0.012 ng/mL (0.01-0.034)
[2020-10-11 18:17] LABS: CKMB % Relative Index 0.3 % (1.5-5.0); Creatine Kinase MB 1.01 ng/mL (<2.37); HEMOLYSIS 26 (0-50)
[2020-10-11 18:44] LABS: NT-proBNP (BNP-Adult 18+) 52 pg/mL (<125)
[2020-10-11 20:18] LABS: Troponin I < 0.012 ng/mL (0.01-0.034)
== END 2020-10-11 21:16 | disposition home or self-care (01) ==
PROVIDERS: Emergency Medicine; Emergency Provider Emergency Medicine; Family Provider Internal Medicine; PCP Internal Medicine
DX: R07.89 Other chest pain (principal); I10 Essential (primary) hypertension
CPT/HCPCS: 36415; 71045; 80053; 82550; 82553; 83690; 83735; 83880; 84484; 85025; 93005; 93010; 99283; 99284

== ENCOUNTER → 2020-10-16 08:16 | Outpatient (CLI) | payer MEDICARE, SELFPAY ==
--- NOTE | 2020-10-16 08:21 | DI.MG.S_ITS ---
BILATERAL DIGITAL SCREENING MAMMOGRAM 3D/2D WITH CAD: 10/16/2020 CLINICAL: Routine screening. Comparison is made to exams dated: 06/04/2018 mammogram, 05/30/2017 mammogram, and 05/23/2017 mammogram - [facility]. The tissue of both breasts is heterogeneously dense. This may lower the sensitivity of mammography. Current study was also evaluated with a Computer Aided Detection (CAD) system. There are benign vascular calcifications in the right breast. There also is a biopsy clip in the right breast. No significant masses, calcifications, or other findings are seen in either breast. There has been no significant interval change. IMPRESSION: BENIGN There is no mammographic evidence of malignancy. A 1 year screening mammogram is recommended. This exam was interpreted at Station ID: [id number]. NOTE: For mammograms, a report in lay terms will be sent to the patient. Approximately 15% of breast malignancies will not be visualized mammographically. In the management of a palpable breast mass, a negative mammogram must not discourage biopsy of a clinically suspicious lesion. Electronically Signed By: Erik donohue/bayron:10/17/2020 21:42:56 letter sent: Normal Exam ACR BI-RADS Category 2: Benign Finding(s) 3342F
[2020-10-16 10:16] LABS: C-Reactive Protein Quant 1.6 mg/dL (<1.0); Cholesterol 186 mg/dL (140-199); HDL Cholesterol 59 mg/dL (40-60); LDL Cholesterol Calculated 103 mg/dL (<100); Triglycerides 118 mg/dL (35-150)
[2020-10-16 10:18] LABS: Erythrocyte Sedimentation Rate 5 MM/HR (0-20)
[2020-10-16 10:40] LABS: Thyroid Stimulating Hormone 1.56 uIU/mL (0.47-4.68)
[2020-10-16 10:41] LABS: Free T4, Direct Thyroxine 1.41 ng/dL (0.78-2.19)
== END ==
PROVIDERS: Family Provider Internal Medicine; PCP Internal Medicine; Referring Provider Internal Medicine; Visit Provider Internal Medicine
DX: Z12.31 Encounter for screening mammogram for malignant neoplasm of breast (principal); E03.9 Hypothyroidism, unspecified; E78.5 Hyperlipidemia, unspecified; M32.9 Systemic lupus erythematosus, unspecified; M35.3 Polymyalgia rheumatica
CPT/HCPCS: 36415; 77063; 77067; 80061; 84439; 84443; 85651; 86140

== ENCOUNTER → 2021-03-02 09:16 | Outpatient (CLI) | payer MEDICARE, SELFPAY ==
[2021-03-02 10:08] LABS: COVID19 -Nasal RAPID Negative (Negative)
== END ==
PROVIDERS: Family Provider Internal Medicine; PCP Internal Medicine; Visit Provider Surgery
DX: Z01.812 Encounter for preprocedural laboratory examination (principal); Z20.822 Contact with and (suspected) exposure to COVID-19
CPT/HCPCS: 87635; C9803

== ENCOUNTER 2021-03-03 08:13 | Day surgery (SDC) | payer MEDICARE, SELFPAY ==
[2021-03-03 08:27] VITALS: BP 138/77; PULSE 92; RESP 18; TEMP 36.2; O2SAT 92
[2021-03-03 08:29] VITALS: BMI 34.3
[2021-03-03] MEDS: LACTATED RINGERS 1,000 ML 42 ML IV (08:36)
--- NOTE | 2021-03-03 09:46 | PM.HP.1 ---
History of Present Illness History of Present Illness Date Patient Seen: 03/03/21 Time Patient Seen: 09:46 Chief complaint: SDC Narrative: 71-year-old woman who is due for a colonoscopy. She is not sure when her last colonoscopy was but she knows she is due now. 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 Calculus of kidney (05/01/13) Depression (05/10/11) Facet arthropathy, lumbar Hyperlipidemia (05/10/11) Lumbosacral spondylosis with radiculopathy Menopausal syndrome (04/08/03) Polymyalgia rheumatica (03/02/03) Sacral dysfunction Spondylolisthesis at L4-L5 level Systemic lupus erythematosus (12/19/01) Surgical History Status post breast biopsy Family & Social History Family History Mother Family history of TIAs Social History: household members spouse Tobacco & Substance use: Smoking Status Never smoker alcohol intake never Substance Use Type does not use Meds Home Medications and Allergies Home Medications Medication Instructions Recorded Confirmed Type bupropion HCl 150 mg 24 hr tablet, 150 mg PO QAM #30 tab 10/13/19 03/03/21 Rx extended release celecoxib 200 mg capsule (Celebrex) 200 mg PO Q DAY #90 cap 05/28/20 03/03/21 Rx fluoxetine 40 mg capsule 40 mg PO DAILY #90 cap 06/28/20 03/03/21 Rx levothyroxine 112 mcg tablet 112 mcg PO QAM #90 tab 06/28/20 10/25/20 Rx simvastatin 40 mg tablet 20 mg PO Q DAY #45 tab 06/28/20 10/25/20 Rx trazodone 100 mg tablet 100 mg PO HS #90 tab 06/28/20 03/03/21 Rx Allergies Allergy/AdvReac Type Severity Reaction Status Date / Time No Known Drug Allergies Allergy Verified 03/03/21 08:24 Exam Vital Signs (past 8 hours): - 03/03/21 08:27 Temperature 97.2 F L Pulse Rate 92 H Respiratory Rate 18 Blood Pressure 138/77 Pulse Oximetry 92 Oxygen Delivery Method Room Air Const General: healthy appearing Eyes General: appearance normal, both eyes and all related structures Resp Effort & Inspection: normal respiratory effort Assessment & Plan Assessment and plan (1) Colon cancer screening: Status: Acute Plan Plan for colonoscopy. Risks and benefits reviewed. COVID-19 COVID-19 status: Negative Result date/Date tested (Pos, Neg/Pending): 03/02/21 Time Spent With Patient Critical Care time: I spent a total of [] minutes of critical care time on this patient's care today; this time is exclusive of procedural time.
[2021-03-03] MEDS: fentaNYL 250 MCG/5 ML INJ IV (09:50)
[2021-03-03] MEDS: MIDAZOLAM 5 MG/5 ML VIAL IV (09:51)
--- NOTE | 2021-03-03 10:16 | PM.OP.COLON ---
Operative Date/Time/Diagnoses Date of procedure: 03/03/21 Time of procedure: 10:17 Pre-op diagnosis: Colon cancer screening Post-op diagnosis: same Procedure & Clinicians Study performed: Colonoscopy Same procedure as scheduled: Yes Indications: Colon cancer screening Surgeon: Caleb Fish Procedure Notes SCOAP/Timeout: Yes Procedure in detail: Procedure: The patient was brought to the endoscopy suite, placed in left lateral decubitus position. The patient was connected to monitoring devices. A time-out was performed. Sedation was administered. Once the patient was adequately sedated, a digital rectal exam was performed and was normal. The scope was then inserted and advanced to the cecum where the appendiceal orifice was identified and photographed. The scope was then slowly withdrawn over greater than 6 minutes. Mucosa was thoroughly inspected. There was extensive sigmoid colon diverticulosis. The scope was retroflexed in the rectum. No abnormalities were noted other than moderate internal hemorrhoids. The scope was straightened and removed. The patient was awakened and brought to recovery. Versed: 3 mg Fentanyl: 150 mcg EBL: 0 Findings: Sigmoid colon diverticulosis Scope withdrawal time: 10 Sedation minutes: 24 Findings: divertiulosis Specimen(s): none sent Post-procedure Recommendations: Colonoscopy in 10 years Disposition: PACU
[2021-03-03 10:18] VITALS: BP 147/67; PULSE 81; RESP 16; O2SAT 95
[2021-03-03 10:23] VITALS: BP 153/69; PULSE 80; RESP 13; TEMP 36.6; O2SAT 96
[2021-03-03 10:28] VITALS: BP 139/59; PULSE 88; RESP 25; O2SAT 92
--- NOTE | 2021-03-03 10:37 | SUR.PHASEI ---
assumed care of pt, stable pacu stay, to opd.
[2021-03-03 10:38] VITALS: BP 127/68; PULSE 77; RESP 11; TEMP 36.9; O2SAT 95
== END 2021-03-03 11:00 | disposition home or self-care (01) ==
PROVIDERS: Family Provider Internal Medicine; PCP Internal Medicine; Referring Provider Surgery; Visit Provider Surgery
PROC: 0DJD8ZZ Inspection of Lower Intestinal Tract, Via Natural or Artificial Opening Endoscopic (ICD-10-PCS; CPT 45378; principal; 2021-03-03 09:15)
DX: Z12.11 Encounter for screening for malignant neoplasm of colon (principal); E03.9 Hypothyroidism, unspecified; F32.9 Major depressive disorder, single episode, unspecified; E78.5 Hyperlipidemia, unspecified; M35.3 Polymyalgia rheumatica; M32.9 Systemic lupus erythematosus, unspecified; K64.8 Other hemorrhoids; K57.30 Diverticulosis of large intestine without perforation or abscess without bleeding
CPT/HCPCS: G0121; 99152; J2250; J3010

== ENCOUNTER → 2021-05-13 10:50 | Outpatient (CLI) | payer MEDICARE, SELFPAY ==
[2021-05-13 11:23] LABS: Add Manual Diff / Slide Review NO; Basophils Absolute Auto 0 /uL (0-100); Basophils Percent Auto 0.7 % (0-2); Eosinophils Absolute Auto 400 /uL (0-450); Eosinophils Percent Auto 5.6 % (2-4); Hematocrit 40.6 % (36-46); Hemoglobin 13.6 g/dL (12.0-16.0); Lymphocytes Absolute Auto 1200 /uL (1100-4500); Lymphocytes Percent Auto 17.6 % (25-40); Mean Corpuscular HGB Conc 33.5 % (30-36); Mean Corpuscular Hemoglobin 30.8 PG (26-34); Mean Corpuscular Volume 92.1 fL (80-100); Monocytes Absolute Auto 400 /uL (0-900); Monocytes Percent Auto 6.8 % (3-14); Neutrophils Absolute Auto 4600 /uL (1500-7000); Neutrophils Percent Auto 69.3 % (50-75); Platelet Count 245 X10^3/uL (150-400); Red Blood Cell Count 4.41 X10^6/uL (4.0-5.2); Red Cell Distribution Width 14.4 % (11.6-14.8); White Blood Cell Count 6.6 X10^3/uL (4.5-11.0)
[2021-05-13 11:42] LABS: Erythrocyte Sedimentation Rate 6 MM/HR (0-20)
[2021-05-13 11:49] LABS: Alanine Aminotransferase 23 IU/L (<35); Albumin 4.2 g/dL (3.5-5.0); Albumin Globulin Ratio 1.4 (1.0-2.8); Alkaline Phosphatase 84 U/L (38-126); Aspartate Aminotransferase 27 IU/L (14-36); BUN Creatinine Ratio 23.7 (6-22); Bilirubin Total 0.4 mg/dL (0.2-1.3); Blood Urea Nitrogen 23 mg/dL (7-17); C-Reactive Protein Quant 0.6 mg/dL (<1.0); Calcium 8.9 mg/dL (8.4-10.2); Carbon Dioxide 30 mmol/L (22-32); Chloride 106 mmol/L (98-107); Creatine Kinase 67 U/L (30-135); Estimated Glomerular Filt Rate 56.9 mL/min (>60); Glucose 92 mg/dL (80-110); HEMOLYSIS < 15 (0-50); Potassium 4.3 mmol/L (3.4-5.1); Sodium 140 mmol/L (137-145); Total Protein 7.2 g/dL (6.3-8.2)
[2021-05-13 12:01] LABS: Free T4, Direct Thyroxine 1.49 ng/dL (0.78-2.19)
[2021-05-13 12:15] LABS: Thyroid Stimulating Hormone 1.47 uIU/mL (0.47-4.68)
== END ==
PROVIDERS: Family Provider Internal Medicine; PCP Internal Medicine; Referring Provider Internal Medicine; Visit Provider Internal Medicine
DX: E03.9 Hypothyroidism, unspecified (principal); E78.2 Mixed hyperlipidemia; F32.9 Major depressive disorder, single episode, unspecified; R53.83 Other fatigue
CPT/HCPCS: 36415; 80053; 82550; 84439; 84443; 85025; 85651; 86140

== ENCOUNTER → 2021-10-10 13:36 | Outpatient (CLI) | payer MEDICARE, SELFPAY ==
[2021-10-10 14:23] LABS: COVID19 -Nasal RAPID Negative (Negative)
== END ==
PROVIDERS: Family Provider Internal Medicine; PCP Internal Medicine; Visit Provider Physical Medicine & Rehabilitation
DX: Z20.822 Contact with and (suspected) exposure to COVID-19 (principal)
CPT/HCPCS: 87635; C9803

== ENCOUNTER 2021-10-11 13:17 | Outpatient (CLI) | payer MEDICARE, SELFPAY ==
--- NOTE | 2021-10-11 13:20 | DI.RAD.S_ITS ---
PROCEDURE: PAIN L INTERLAMINAR/CAUDAL INJ INDICATIONS: SPONDYLOSIS COMPARISON: [facility], XA, PAIN L INTERLAMINAR/CAUDAL INJ, 01/27/2020, 9:40. FINDINGS: Fluoroscopic spot filming was performed to verify placement of a spinal needle at the L4-L5 level, as labeled on the films. Appropriate location of the needle tip was confirmed by injection of iodinated contrast. IMPRESSION: Intraprocedural examination within normal limits. Dictated by: Mikie Fortune M.D. on 10/11/2021 at 13:36 Approved by: Mikie Fortune M.D. on 10/11/2021 at 13:36
[2021-10-11 13:34] VITALS: BP 150/88; PULSE 82; RESP 19; TEMP 37; O2SAT 97
[2021-10-11 14:00] VITALS: BP 145/71; PULSE 75; RESP 20; O2SAT 97
[2021-10-11 14:05] VITALS: BP 153/72; PULSE 72; RESP 23; O2SAT 97
[2021-10-11 14:13] VITALS: BP 155/76; PULSE 79; RESP 18; O2SAT 97
--- NOTE | 2021-10-11 14:14 | P.PCN_ITS ---
Date/Time/Diagnoses Date of procedure: 10/11/21 Time of procedure: 14:14 Pre-procedure diagnosis: 1. HNP WITH RADICULAR FEATURES, 2. MULTILEVEL CENTRAL STENOSIS, Post-procedure diagnosis: same Procedure Notes Procedure: 1. FLUOROSCOPICALLY GUIDED CONTRAST CONTROLLED INTERLAMINAR EPIDURAL STEROID INJECTION -L4/5 Indications: Casandra is referred by Dr. Granger for treatment of Bilateral Foraminal Stenosis R>L LE symptoms. Physician: Deni Ramos Total Fluoroscopy time (seconds): 6 Total sedation minutes: 0 Complications: none Procedure in detail & Post-procedure care: FINDINGS Multilevel Central Spinal Stenosis with Nerve Root Compression DESCRIPTION OF PROCEDURE Fluoroscopically guided, contrast-controlled L4/5 translaminar epidural steroid injection. Following review of allergy and review of potential side effects and complications, including, but not necessarily limited to, infection, allergic reaction, local tissue breakdown, temporary as well as permanent nerve injury, paralysis, stroke and possible , the patient indicated that the patient understood and agreed to proceed. An informed consent document was signed by the patient, witnessed by a nurse, and placed in the patient's chart. Additionally, other treatment options including modalities, medications, and physical therapy were reviewed with the patient. After review of previous anaesthesic history and IV conscious sedation the patient was deemed safe to proceed with today?s procedure with IV conscious sedation as ASA class II designation. Safety time-out was performed to confirm patient ID, procedure to be performed and site of procedure. IV sedation was deemed unnecessary and thus not administered by the RN after DO order, titrated to patient comfort during the course of the procedure while the patient remained responsive to all verbal commands In the prone position, following sterile prep and drape of the lumbar region, the L4/5 translaminar space was identified fluoroscopically. The skin was anesthetized via a 25-gauge, 1.5inch needle with 1% lidocaine solution. At this point, a 22-gauge short bevel spinal needle was atraumatically introduced and advanced under fluoroscopic guidance into the region of the L4/5 translaminar space. Depth was confirmed on lateral view. Radiological data, including multiple fluoroscopic views of the lumbar spine, reveal a spinal needle at the L4/5 translaminar space. Lateral views then show placement of the needle in the epidural space. Subsequent views show contrast material flowing superiorly and inferiorly in the epidural space. No vascular or intrathecal uptake is observed. At this point, using loss of resistance technique with saline and air, the epidural space was entered. This was confirmed following negative aspiration with injection of approximately 1.5cc of Isovue 200, showing excellent epidural flow without vascular or intrathecal uptake. At this point, 1cc of 1% lidocaine solution combined with 3cc or 20mg of dexamethasone and 6mg betamethasone was injected without incident. The patient tolerated the procedure well without signs or symptoms of complications prior to transfer to the recovery area continued monitoring without incident. The patient was then transferred to the recovery area where they were observed for an appropriate period of time after the injection. The patient reported a VAS score of 6 prior to the procedure and a post- procedure VAS of 0. POST OP INSTRUCTIONS The patient was provided a Pain Log to continue to record their response to the target-specific procedure prior to follow-up visit with their referring physician. Additionally, specific post-injection care instructions and a contact number to our office were provided if concerns arise regarding possible complications associated with the procedure are suspected.
== END 2021-10-11 14:15 | disposition home or self-care (01) ==
PROVIDERS: Family Provider Internal Medicine; PCP Internal Medicine; Referring Provider Physical Medicine & Rehabilitation; Visit Provider Physical Medicine & Rehabilitation
DX: M51.16 Intervertebral disc disorders with radiculopathy, lumbar region; M48.061 Spinal stenosis, lumbar region without neurogenic claudication
CPT/HCPCS: 62323; J0702; J1100

== ENCOUNTER 2021-12-27 15:18 | Outpatient (CLI) | payer MEDICARE, SELFPAY ==
[2021-12-27] VITALS (7 sets, daily range): BP systolic 148–191; BP diastolic 66–83; PULSE 68–75; RESP 14–20; TEMP 36.2; O2SAT 97–100
--- NOTE | 2021-12-27 15:20 | DI.RAD.S_ITS ---
PROCEDURE: PAIN L/SI FACET INJ/BLK 1STL INDICATIONS: SPONDYLOSIS COMPARISON: [facility], XA, PAIN L INTERLAMINAR/CAUDAL INJ, 10/11/2021, 14:03. FINDINGS: Fluoroscopic spot filming was performed to verify placement of spinal needles on the right at the L4-L5 and L5-S1 levels, as labeled on the films. Appropriate location of the needle tips was confirmed by injection of iodinated contrast. IMPRESSION: Intraprocedural examination demonstrating appropriate positions of the needles. Dictated by: Mikie Fortune M.D. on 12/27/2021 at 16:55 Approved by: Mikie Fortune M.D. on 12/27/2021 at 16:56
[2021-12-27] MEDS: IOPAMIDOL 15 ML VIAL 3 ML INJ (16:20)
[2021-12-27] MEDS: BETAMETHASONE 30 MG/5 ML MDV 12 MG INJ (16:21)
[2021-12-27] MEDS: BUPIVACAINE 0.5% MDV 5 ML SUBCUT (16:21)
--- NOTE | 2021-12-27 16:39 | P.PCN_ITS ---
Date/Time/Diagnoses Date of procedure: 12/27/21 Time of procedure: 16:39 Pre-procedure diagnosis: 1. FACET ARTHROPATHY, 2. AXIAL LBP, 3. MULTILEVEL DDD Post-procedure diagnosis: same Procedure Notes Procedure: 1. FLUOROSCOPICALLY GUIDED CONTRAST CONTROLLED FACET JOINT INJECTIONS RIGHT L4/5, L5/S1 Indications: Casandra is referred by Dr. Granger for treatment of Axial LBP Physician: Deni Ramos Total Fluoroscopy time (seconds): 6 Total sedation minutes: 0 Complications: none Procedure in detail & Post-procedure care: FINDINGS Multilevel Facet Arthropathy with Clinically significant axial LBP DESCRIPTION OF PROCEDURE Fluoroscopically guided, contrast-controlled right L4/5, L5/S1 facet joint injections. Following review of allergy and review of potential side effects and complications, including, but not necessarily limited to, infection, allergic reaction, local tissue breakdown, stroke, temporary or permanent nerve injury, paralysis, and possible , the patient indicated that the patient understood and agreed to proceed. An informed consent document was signed by the patient, witnessed by a nurse, and placed in the patient's chart. Additionally, other treatment options including medications, modalities, and physical therapy were reviewed with the patient. After review of previous anaesthesic history and IV conscious sedation the patient was deemed safe to proceed with today?s procedure with IV conscious sedation as ASA class II designation. Safety time-out was performed to confirm patient ID, procedure to be performed and site of procedure. IV sedation was deemed unnecessary and thus not administered by the RN after DO order, titrated to patient comfort during the course of the procedure while the patient remained responsive to all verbal commands. In the prone position, following sterile prep and drape of the lumbar region, the posterior aspect of the right L4/5, L5/S1 facet joints were identified fluoroscopically. The skin was anesthetized via a 25-gauge 1.5-inch needle with 1% lidocaine solution into the corresponding facet joints. At this point, a 22- gauge 3.5-inch spinal needle was atraumatically introduced and advanced under fluoroscopic guidance into the corresponding facet joints. Following negative aspiration, injections of approximately 0.2-cc of Isovue 200 confirmed interarticular placement without vascular uptake. Radiological data, including multiple fluoroscopic views of the lumbosacral spine, reveal a spinal needle at the right L4/5, L5/S1 facet joints. Subsequent views show flow of contrast material both superiorly and inferiorly within the joint space without vascular or intrathecal uptake. At this point, a total of 0.5cc including a mixture of 0.25cc Marcaine and 0.25cc betamethasone was injected without complication into each of the corresponding facet joints. The procedure tolerated the procedure well without signs or symptoms of complications prior to transfer to the recovery area continued monitoring without incident. The patient was then transferred to the recovery area where they were observed for an appropriate period of time after the injection. The patient reported a VAS score of 7 prior to the procedure and a post-procedure VAS of 0. POST OP INSTRUCTIONS The patient was provided a Pain Log to continue to record their response to the target-specific procedure prior to follow-up visit with their referring physician. Additionally, specific post-injection care instructions and a contact number to our office were provided if concerns arise regarding possible complications associated with the procedure are suspected.
== END 2021-12-27 16:43 | disposition home or self-care (01) ==
PROVIDERS: Family Provider Internal Medicine; PCP Internal Medicine; Referring Provider Physical Medicine & Rehabilitation; Visit Provider Physical Medicine & Rehabilitation
DX: M47.816 Spondylosis without myelopathy or radiculopathy, lumbar region (principal); M47.817 Spondylosis without myelopathy or radiculopathy, lumbosacral region; M51.36 Other intervertebral disc degeneration, lumbar region; M51.37 Other intervertebral disc degeneration, lumbosacral region
CPT/HCPCS: 64493; 64494; J0702

== ENCOUNTER 2022-05-08 11:34 | Emergency (ER) | payer MEDICARE, SELFPAY ==
[2022-05-08 11:51] VITALS: BP 218/92; PULSE 84; RESP 16; TEMP 36.7; O2SAT 98; BMI 36.0
--- NOTE | 2022-05-08 11:58 | DI.RAD.S_ITS ---
PROCEDURE: XR CHEST 1V INDICATIONS: chest pain TECHNIQUE: One view of the chest was acquired. COMPARISON: [facility], CR, XR CHEST 1V, 10/11/2020, 17:52. [facility], CR, XR CHEST 2V, 03/22/2019, 16:17. FINDINGS: Surgical changes and devices: None. Lungs and pleura: Lungs are clear. No pleural effusions or pneumothorax. Mediastinum: Mediastinal contours appear normal. Heart size is normal. Bones and chest wall: No suspicious bony lesions. Overlying soft tissues appear unremarkable. IMPRESSION: No acute cardiopulmonary process. Dictated by: Kavon Renee M.D. on 05/08/2022 at 12:38 Approved by: Kavon Renee M.D. on 05/08/2022 at 12:38
[2022-05-08 12:00] VITALS: BP 180/80; PULSE 78; RESP 17; O2SAT 98
[2022-05-08 12:15] LABS: Add Manual Diff / Slide Review NO; Basophils Absolute Auto 100 /uL (0-100); Basophils Percent Auto 1.2 % (0-2); Eosinophils Absolute Auto 300 /uL (0-450); Eosinophils Percent Auto 3.7 % (2-4); Hematocrit 41.6 % (36-46); Hemoglobin 13.7 g/dL (12.0-16.0); Lymphocytes Absolute Auto 1800 /uL (1100-4500); Lymphocytes Percent Auto 22.7 % (25-40); Mean Corpuscular Hemoglobin 29.6 PG (26-34); Mean Corpuscular Volume 89.7 fL (80-100); Monocytes Absolute Auto 700 /uL (0-900); Monocytes Percent Auto 8.8 % (3-14); Neutrophils Absolute Auto 5100 /uL (1500-7000); Neutrophils Percent Auto 63.6 % (50-75); Platelet Count 296 X10^3/uL (150-400); Red Blood Cell Count 4.64 X10^6/uL (4.0-5.2)
[2022-05-08 12:36] LABS: Alanine Aminotransferase 36 IU/L (<35); Albumin 4.3 g/dL (3.5-5.0); Albumin Globulin Ratio 1.3 (1.0-2.8); Alkaline Phosphatase 126 U/L (38-126); Aspartate Aminotransferase 38 IU/L (14-36); BUN Creatinine Ratio 22.1 (6-22); Bilirubin Total 0.5 mg/dL (0.2-1.3); Blood Urea Nitrogen 17 mg/dL (7-17); Calcium 8.9 mg/dL (8.4-10.2); Carbon Dioxide 31 mmol/L (22-32); Chloride 102 mmol/L (98-107); Creatine Kinase 120 U/L (30-135); Estimated Glomerular Filt Rate > 60 mL/min (>60); Globulin 3.4 g/dL (1.7-4.1); Glucose 93 mg/dL (80-110); Lipase 78 U/L (23-300); Magnesium 2.1 mg/dL (1.6-2.3); Potassium 4.1 mmol/L (3.4-5.1); Sodium 137 mmol/L (137-145); Total Protein 7.7 g/dL (6.3-8.2)
[2022-05-08 12:38] LABS: HEMOLYSIS 60 (0-50)
[2022-05-08 12:44] LABS: NT-proBNP (BNP-Adult 18+) 49 pg/mL (<125)
[2022-05-08 12:47] LABS: Troponin I < 0.012 ng/mL (0.01-0.034)
[2022-05-08 12:50] LABS: CKMB % Relative Index 0.6 % (1.5-5.0); Creatine Kinase MB 0.66 ng/mL (<2.37)
[2022-05-08 12:53] LABS: INR 1.1 (0.9-1.3)
[2022-05-08 12:55] LABS: PTT Partial Thromboplastin Tim 33 SECONDS (26-36)
[2022-05-08] MEDS: KETOROLAC 30 MG/ML VIAL 15 MG IV (13:15)
[2022-05-08] MEDS: ACETAMINOPHEN 325 MG TABLET 975 MG PO (13:15)
[2022-05-08 13:26] LABS: D Dimer 428 ng/ml (<500)
--- NOTE | 2022-05-08 13:39 | ED_ITS ---
HPI - General Adult <Danette Loza PA-C - Last Filed: 05/08/22 20:05> General Chief complaint: Hypertension Stated complaint: High BP, unsteadiness, dizzy, fell last night Time Seen by Provider: 05/08/22 12:12 Mode of arrival: Family Vehicle History of Present Illness HPI narrative: 72-year-old female with past medical history hyperlipidemia, hypothyroidism, polymyalgia rheumatica, SLE presents to the ED with 4 days of lightheadedness, r ight-sided headache. Patient states that she has dyspnea on exertion, felt lightheaded when she got up last night, ended up falling, did not lose consciousness, did not strike her head. Patient states that she has been feeling intermittently lightheaded like this over the last 2 months. Patient a lso endorses right-sided headache, feels like her sinuses are congested on the right side. Patient denies fever, chills, purulent nasal drainage, cough, sore throat, chest pain, nausea, vomiting, abdominal pain, dysuria, dizziness, syncope. Related Data Previous Rx's Medication Instructions Recorded bupropion HCl 150 mg 24 hr tablet, 150 mg PO QAM #30 tabs 10/13/19 extended release celecoxib 200 mg capsule (Celebrex) 200 mg PO Q DAY #90 caps 09/27/21 fluoxetine 40 mg capsule 40 mg PO DAILY #90 caps 09/27/21 levothyroxine 112 mcg tablet 112 mcg PO QAM #90 tabs 09/27/21 simvastatin 40 mg tablet 20 mg PO Q DAY #45 tabs 09/27/21 oxaprozin 600 mg tablet (Daypro) 1,200 mg PO DAILY #60 tabs 12/27/21 trazodone 100 mg tablet 100 mg PO HS #90 tabs 05/12/22 Allergies Allergy/AdvReac Type Severity Reaction Status Date / Time No Known Drug Allergies Allergy Verified 12/21/21 15:28 Review of Systems <Danette Loza PA-C - Last Filed: 05/08/22 20:05> Review of Systems ROS Unobtainable: All systems reviewed & are unremarkable except as noted in HPI and below Constitutional Constitutional: Denies chills, Denies fatigue, Denies fever(s), Denies frequent falls, Denies lethargy and Denies weakness Comments: Lightheadedness Eyes Eyes: Denies change in vision, Denies eye discharge, Denies irritation and Denies loss of vision ENT Ears, Nose, Mouth, and Throat: Denies change in voice, Denies dizziness, Reports nasal congestion, Denies neck pain, Reports post nasal drip, Reports sinus pressure, Denies sore throat and Denies throat swelling Cardiovascular Cardiovascular: Denies chest pain, Denies irregular heart rhythm, Denies li ghtheadedness, Denies palpitations, Denies dyspnea, Denies dyspnea on exertion and Denies orthopnea Respiratory Respiratory: Denies cough, Denies dyspnea, Denies dyspnea on exertion and Denies wheezing Gastrointestinal Gastrointestinal: Denies abdominal pain, Denies change in bowel habits, Denies diarrhea, Denies nausea and Denies vomiting Genitourinary Genitourinary: Denies hematuria, Denies flank pain, Denies urinary incontinence and Denies urinary urgency Musculoskeletal Musculoskeletal: Denies back pain, Denies muscle weakness, Denies neck pain, Denies numbness and Denies tingling Integumentary/Breasts Skin/Breast: Denies pruritus, Denies erythema, Denies rash and Denies wounds Neurologic Neurologic: Denies behavioral changes, Denies confusion, Denies dizziness, Denies frequent falls, Denies loss of vision, Denies numbness, Denies tingling and Denies weakness Psychiatric Psychiatric: Denies anxiety, Denies behavioral changes, Denies confusion, Denies depression, Denies homicidal ideation and Denies suicidal ideation Endocrine Endocrine: Denies fatigue, Denies flushing and Denies palpitations Hematologic/Lymphatic Hematologic/Lymphatic: Denies easy bruising Allergic/Immunologic Allergic/Immunologic: Denies urticaria, Denies throat swelling and Denies wheezing Patient History <Danette Loza PA-C - Last Filed: 05/08/22 20:05> Medical History Acquired hypothyroidism (05/16/16) 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 Calculus of kidney (05/01/13) Depression (05/10/11) Facet arthropathy, lumbar Hyperlipidemia (05/10/11) Lumbosacral spondylosis with radiculopathy Menopausal syndrome (04/08/03) Polymyalgia rheumatica (03/02/03) Sacral dysfunction Spondylolisthesis at L4-L5 level Systemic lupus erythematosus (12/19/01) Surgical History Status post breast biopsy Family History Mother Family history of TIAs Social History household members: spouse Smoking Status: Never smoker alcohol intake: never Smoking Status: Never smoker Substance Use Type: does not use Exam <Danette Loza PA-C - Last Filed: 05/08/22 20:05> Narrative Exam Narrative: Const General:?cooperative, healthy appearing and comfortable HENIN Head:?normal to inspection Ears:?hearing grossly normal bilaterally Nose:?external nose normal Face and sinus:?normal facial exam and sinuses nontender Mouth:?oral mucosae normal Throat:?posterior oropharynx normal Eyes General:?appearance normal, both eyes and all related structures Neck Neck:?normal visual inspection and no lymphadenopathy noted Resp Effort & Inspection:?normal respiratory effort Auscultation:?clear to auscultation bilaterally Cardio Rate:?regular rate Rhythm:?regular rhythm Neuro General:?patient alert, patient awake and patient oriented x3 Initial Vital Signs Initial Vital Signs: Vital Signs Temperature 98.0 F 05/08/22 11:51 Pulse Rate 84 05/08/22 11:51 Respiratory Rate 16 05/08/22 11:51 Blood Pressure 218/92 H 05/08/22 11:51 Pulse Oximetry 98 05/08/22 11:51 Oxygen Delivery Method Room Air 05/08/22 11:51 <Marshall Souza DO - Last Filed: 05/15/22 07:32> Initial Vital Signs Initial Vital Signs: Vital Signs Temperature 98.0 F 05/08/22 11:51 Pulse Rate 84 05/08/22 11:51 Respiratory Rate 16 05/08/22 11:51 Blood Pressure 218/92 H 05/08/22 11:51 Pulse Oximetry 98 05/08/22 11:51 Oxygen Delivery Method Room Air 05/08/22 11:51 Course <Danette Loza PA-C - Last Filed: 05/08/22 20:05> Orders Ordered: Discontinued Medications Acetaminophen (Acetaminophen 325 Mg Tablet) 975 mg PO NOW ONE Stop: 05/08/22 13:07 Last Admin: 05/08/22 13:15 Dose: 975 mg Documented By: LIGIA Sodium Chloride (Normal Saline 0.9%) 1,000 mls @ 1,000 mls/hr IV BOLUS ONE Stop: 05/08/22 14:05 Last Admin: 05/08/22 13:15 Dose: Not Given Documented By: LIGIA Ketorolac Tromethamine (Ketorolac 30 Mg/Ml Vial) 15 mg IV NOW ONE Stop: 05/08/22 13:07 Last Admin: 05/08/22 13:15 Dose: 15 mg Documented By: LIGIA Vital Signs Vital signs: Vital Signs - 8 hr 05/08/22 12:00 05/08/22 14:14 Pulse Rate 78 70 Respiratory Rate 17 18 Blood Pressure 180/80 H 168/80 H Pulse Oximetry 98 99 Oxygen Delivery Method Room Air Room Air <Marshall Souza DO - Last Filed: 05/15/22 07:32> Orders Ordered: Discontinued Medications Acetaminophen (Acetaminophen 325 Mg Tablet) 975 mg PO NOW ONE Stop: 05/08/22 13:07 Last Admin: 05/08/22 13:15 Dose: 975 mg Documented By: LIGIA Sodium Chloride (Normal Saline 0.9%) 1,000 mls @ 1,000 mls/hr IV BOLUS ONE Stop: 05/08/22 14:05 Last Admin: 05/08/22 13:15 Dose: Not Given Documented By: LIGIA Ketorolac Tromethamine (Ketorolac 30 Mg/Ml Vial) 15 mg IV NOW ONE Stop: 05/08/22 13:07 Last Admin: 05/08/22 13:15 Dose: 15 mg Documented By: LIGIA Vital Signs Vital signs: Vital Signs - 8 hr 05/08/22 12:00 05/08/22 14:14 Pulse Rate 78 70 Respiratory Rate 17 18 Blood Pressure 180/80 H 168/80 H Pulse Oximetry 98 99 Oxygen Delivery Method Room Air Room Air Medical Decision Making <Danette Loza PA-C - Last Filed: 05/08/22 20:05> Lab Data 05/08/22 12:05 05/08/22 12:05 Labs: Lab Results 05/08/22 05/08/22 05/08/22 Range/Units 12:05 12:05 12:05 WBC 8.0 (4.5-11.0) X10^3/uL RBC 4.64 (4.0-5.2) X10^6/uL Hgb 13.7 (12.0-16.0) g/dL Hct 41.6 (36-46) % MCV 89.7 (80-100) fL MCH 29.6 (26-34) PG MCHC 33.0 (30-36) % RDW 14.0 (11.6-14.8) % Plt Count 296 (150-400) X10^3/uL Neut % (Auto) 63.6 (50-75) % Lymph % (Auto) 22.7 L (25-40) % [place] % (Auto) 8.8 (3-14) % Eos % (Auto) 3.7 (2-4) % Baso % (Auto) 1.2 (0-2) % Neut # (Auto) 5100 (7984-9111) /uL Lymph # (Auto) 1800 (2826-9649) /uL [place] # (Auto) 700 (0-900) /uL Eos # (Auto) 300 (0-450) /uL Baso # (Auto) 100 (0-100) /uL PT 13.0 H (10.1-12.7) SECONDS INR 1.1 (0.9-1.3) APTT 33 (26-36) SECONDS D-Dimer (<500) ng/ml Sodium 137 (137-145) mmol/L Potassium 4.1 (3.4-5.1) mmol/L Chloride 102 (98-107) mmol/L Carbon Dioxide 31 (22-32) mmol/L BUN 17 (7-17) mg/dL Creatinine 0.77 (0.52-1.04) mg/dL Estimated GFR > 60 (>60) mL/min BUN/Creatinine Ratio 22.1 H (6-22) Glucose 93 (80-110) mg/dL Calcium 8.9 (8.4-10.2) mg/dL Magnesium 2.1 (1.6-2.3) mg/dL Total Bilirubin 0.5 (0.2-1.3) mg/dL AST 38 H (14-36) IU/L ALT 36 H (<35) IU/L Alkaline Phosphatase 126 (38-126) U/L Total Creatine Kinase 120 (30-135) U/L CK-MB (CK-2) 0.66 (<2.37) ng/mL CK-MB (CK-2) Rel Index 0.6 L (1.5-5.0) % Troponin I < 0.012 (0.01-0.034) ng/mL NT-Pro-B Natriuret Pep (<125) pg/mL Total Protein 7.7 (6.3-8.2) g/dL Albumin 4.3 (3.5-5.0) g/dL Globulin 3.4 (1.7-4.1) g/dL Albumin/Globulin Ratio 1.3 (1.0-2.8) Lipase 78 (23-300) U/L 05/08/22 05/08/22 05/08/22 Range/Units 12:05 12:05 14:10 WBC (4.5-11.0) X10^3/uL RBC (4.0-5.2) X10^6/uL Hgb (12.0-16.0) g/dL Hct (36-46) % MCV (80-100) fL MCH (26-34) PG MCHC (30-36) % RDW (11.6-14.8) % Plt Count (150-400) X10^3/uL Neut % (Auto) (50-75) % Lymph % (Auto) (25-40) % [place] % (Auto) (3-14) % Eos % (Auto) (2-4) % Baso % (Auto) (0-2) % Neut # (Auto) (9567-1060) /uL Lymph # (Auto) (8916-3962) /uL [place] # (Auto) (0-900) /uL Eos # (Auto) (0-450) /uL Baso # (Auto) (0-100) /uL PT (10.1-12.7) SECONDS INR (0.9-1.3) APTT (26-36) SECONDS D-Dimer 428 (<500) ng/ml Sodium (137-145) mmol/L Potassium (3.4-5.1) mmol/L Chloride (98-107) mmol/L Carbon Dioxide (22-32) mmol/L BUN (7-17) mg/dL Creatinine (0.52-1.04) mg/dL Estimated GFR (>60) mL/min BUN/Creatinine Ratio (6-22) Glucose (80-110) mg/dL Calcium (8.4-10.2) mg/dL Magnesium (1.6-2.3) mg/dL Total Bilirubin (0.2-1.3) mg/dL AST (14-36) IU/L ALT (<35) IU/L Alkaline Phosphatase (38-126) U/L Total Creatine Kinase 115 (30-135) U/L CK-MB (CK-2) 0.65 (<2.37) ng/mL CK-MB (CK-2) Rel Index 0.6 L (1.5-5.0) % Troponin I < 0.012 (0.01-0.034) ng/mL NT-Pro-B Natriuret Pep 49 (<125) pg/mL Total Protein (6.3-8.2) g/dL Albumin (3.5-5.0) g/dL Globulin (1.7-4.1) g/dL Albumin/Globulin Ratio (1.0-2.8) Lipase (23-300) U/L MDM Narrative Medical decision making narrative: 72-year-old female with past medical history hyperlipidemia, hypothyroidism, polymyalgia rheumatica, SLE presents to the ED with 4 days of lightheadedness, right-sided headache. Concern for ACS versus PE versus intracranial hemorrhage versus malignancy versus sinusitis versus pneumonia versus acute CHF versus UTI versus other. Will obtain EKG, chest x-ray, labs, troponin, d-dimer, BNP, UA, CT head. Will treat headache. Will reassess. CT head shows right-sided acute on chronic sinusitis with occluded sinuses. Rest of the workup was largely unremarkable. Troponin, D-dimer, BNP, UA, labs without acute findings. EKG normal sinus rhythm with no acute ST-T changes. Clinically, patient does not appear to have bacterial sinusitis. Discussed findings with patient. Patient agrees to trial Afrin, Flonase, [id number] pain medications to decongest the sinuses. Patient agrees to follow-up with PCP or return to ED if symptoms worsen. ED return precautions were discussed with patient. Patient verbalized understanding. Medical records reviewed: Yes <Marshall Souza DO - Last Filed: 05/15/22 07:32> Lab Data Labs: Lab Results 05/08/22 05/08/22 05/08/22 Range/Units 12:05 12:05 12:05 WBC 8.0 (4.5-11.0) X10^3/uL RBC 4.64 (4.0-5.2) X10^6/uL Hgb 13.7 (12.0-16.0) g/dL Hct 41.6 (36-46) % MCV 89.7 (80-100) fL MCH 29.6 (26-34) PG MCHC 33.0 (30-36) % RDW 14.0 (11.6-14.8) % Plt Count 296 (150-400) X10^3/uL Neut % (Auto) 63.6 (50-75) % Lymph % (Auto) 22.7 L (25-40) % [place] % (Auto) 8.8 (3-14) % Eos % (Auto) 3.7 (2-4) % Baso % (Auto) 1.2 (0-2) % Neut # (Auto) 5100 (0552-8376) /uL Lymph # (Auto) 1800 (3046-5339) /uL [place] # (Auto) 700 (0-900) /uL Eos # (Auto) 300 (0-450) /uL Baso # (Auto) 100 (0-100) /uL PT 13.0 H (10.1-12.7) SECONDS INR 1.1 (0.9-1.3) APTT 33 (26-36) SECONDS D-Dimer (<500) ng/ml Sodium 137 (137-145) mmol/L Potassium 4.1 (3.4-5.1) mmol/L Chloride 102 (98-107) mmol/L Carbon Dioxide 31 (22-32) mmol/L BUN 17 (7-17) mg/dL Creatinine 0.77 (0.52-1.04) mg/dL Estimated GFR > 60 (>60) mL/min BUN/Creatinine Ratio 22.1 H (6-22) Glucose 93 (80-110) mg/dL Calcium 8.9 (8.4-10.2) mg/dL Magnesium 2.1 (1.6-2.3) mg/dL Total Bilirubin 0.5 (0.2-1.3) mg/dL AST 38 H (14-36) IU/L ALT 36 H (<35) IU/L Alkaline Phosphatase 126 (38-126) U/L Total Creatine Kinase 120 (30-135) U/L CK-MB (CK-2) 0.66 (<2.37) ng/mL CK-MB (CK-2) Rel Index 0.6 L (1.5-5.0) % Troponin I < 0.012 (0.01-0.034) ng/mL NT-Pro-B Natriuret Pep (<125) pg/mL Total Protein 7.7 (6.3-8.2) g/dL Albumin 4.3 (3.5-5.0) g/dL Globulin 3.4 (1.7-4.1) g/dL Albumin/Globulin Ratio 1.3 (1.0-2.8) Lipase 78 (23-300) U/L 05/08/22 05/08/22 05/08/22 Range/Units 12:05 12:05 14:10 WBC (4.5-11.0) X10^3/uL RBC (4.0-5.2) X10^6/uL Hgb (12.0-16.0) g/dL Hct (36-46) % MCV (80-100) fL MCH (26-34) PG MCHC (30-36) % RDW (11.6-14.8) % Plt Count (150-400) X10^3/uL Neut % (Auto) (50-75) % Lymph % (Auto) (25-40) % [place] % (Auto) (3-14) % Eos % (Auto) (2-4) % Baso % (Auto) (0-2) % Neut # (Auto) (4754-8847) /uL Lymph # (Auto) (1871-9927) /uL [place] # (Auto) (0-900) /uL Eos # (Auto) (0-450) /uL Baso # (Auto) (0-100) /uL PT (10.1-12.7) SECONDS INR (0.9-1.3) APTT (26-36) SECONDS D-Dimer 428 (<500) ng/ml Sodium (137-145) mmol/L Potassium (3.4-5.1) mmol/L Chloride (98-107) mmol/L Carbon Dioxide (22-32) mmol/L BUN (7-17) mg/dL Creatinine (0.52-1.04) mg/dL Estimated GFR (>60) mL/min BUN/Creatinine Ratio (6-22) Glucose (80-110) mg/dL Calcium (8.4-10.2) mg/dL Magnesium (1.6-2.3) mg/dL Total Bilirubin (0.2-1.3) mg/dL AST (14-36) IU/L ALT (<35) IU/L Alkaline Phosphatase (38-126) U/L Total Creatine Kinase 115 (30-135) U/L CK-MB (CK-2) 0.65 (<2.37) ng/mL CK-MB (CK-2) Rel Index 0.6 L (1.5-5.0) % Troponin I < 0.012 (0.01-0.034) ng/mL NT-Pro-B Natriuret Pep 49 (<125) pg/mL Total Protein (6.3-8.2) g/dL Albumin (3.5-5.0) g/dL Globulin (1.7-4.1) g/dL Albumin/Globulin Ratio (1.0-2.8) Lipase (23-300) U/L Discharge Plan Departure Patient Disposition: Home Clinical Impression: Sinusitis Instructions: Sinusitis Activity Restrictions/Additional Instructions: You were evaluated in the ED for lightheadedness, right-sided headache, sinus congestion. Your CT shows acute on chronic sinusitis and blocked right-sided sinuses. It is unlikely that you have a bacterial sinus infection, given that you have no purulent nasal discharge, fever, chills. You are most likely experiencing symptoms from a blocked sinus. You may use Afrin for 3 days for nasal decongestion. Please do not use beyond 3 days, since that can result in rebound congestion. You may also use Flonase as per the package directions, that will reduce the inflammation and swelling, on block your sinuses. You may take Tylenol or ibuprofen for the headache or facial discomfort. Please follow- up with your PCP regarding your blood pressure, lightheadedness. Your workup was otherwise normal. Return to the ED if you experience fever, chills, worsening sinus symptoms, thick white nasal discharge. Prescriptions: No Action fluoxetine 40 mg capsule 40 mg PO DAILY Qty: 90 0RF celecoxib [Celebrex] 200 mg capsule 200 mg PO Q DAY Qty: 90 2RF Hold Instructions: Home Medication placed on hold at Doctor's office simvastatin 40 mg tablet 20 mg PO Q DAY Qty: 45 2RF levothyroxine 112 mcg tablet 112 mcg PO QAM Qty: 90 1RF oxaprozin [Daypro] 600 mg tablet 1,200 mg PO DAILY Qty: 60 2RF Rx Instructions: administer with food or milk trazodone 100 mg tablet 100 mg PO HS Qty: 90 3RF bupropion HCl 150 mg tablet extended release 24 hr 150 mg PO QAM Qty: 30 7RF Referrals: Josue Granger MD [Primary Care Provider] - Stand Alone Forms: Patient Portal/API <Marshall Souza, DO - Last Filed: 05/15/22 07:32> [facility] Attestation: Dr Souza Co-Sign Statement: I was available for consultation during this patient's emergency department visit. This chart is signed by myself for administrative purposes only. I did not have direct contact with this patient during this visit. They were seen independently by the APC.
--- NOTE | 2022-05-08 13:48 | DI.CT.S_ITS ---
PROCEDURE: CT HEAD/BRAIN WO CON INDICATIONS: Headache TECHNIQUE: Noncontrast 4.5 mm thick angled axial sections acquired from the foramen magnum to the vertex, with coronal and sagittal reformats. For radiation dose reduction, the following was used: automated exposure control, adjustment of mA and/or kV according to patient size. COMPARISON: None. FINDINGS: Image quality: Excellent. CSF spaces: Basal cisterns are patent. No extra-axial fluid collections. The ventricles are symmetric in size and shape. Brain: No intracranial bleeds or masses. There is cerebral volume loss for age, with resultant ventricular and sulcal prominence. There are periventricular and deep white matter chronic small vessel ischemic changes. There is intracranial internal carotid artery atherosclerosis. Skull and face: Calvarium and visualized facial bones appear intact, without suspicious lesions. Sinuses: Visualized sinuses and mastoids are clear. IMPRESSION: No acute intracranial abnormality. Chronic appearing complete right maxillary sinus, right frontal sinus, and right anterior ethmoid air cell opacification. Findings are consistent with acute on chronic sinusitis and right OMU obstruction. Dictated by: Bassam Wright M.D. on 05/08/2022 at 14:20 Approved by: Bassam Wright M.D. on 05/08/2022 at 14:22
[2022-05-08 14:14] VITALS: BP 168/80; PULSE 70; RESP 18; O2SAT 99
[2022-05-08 14:41] LABS: Creatine Kinase 115 U/L (30-135)
[2022-05-08 14:54] LABS: Troponin I < 0.012 ng/mL (0.01-0.034)
[2022-05-08 14:57] LABS: CKMB % Relative Index 0.6 % (1.5-5.0); Creatine Kinase MB 0.65 ng/mL (<2.37)
== END 2022-05-08 15:17 | disposition home or self-care (01) ==
PROVIDERS: Emergency Medicine; Emergency Provider Student in an Organized Health Care Education/Training Program; Family Provider Internal Medicine; PCP Internal Medicine
DX: J32.9 Chronic sinusitis, unspecified (principal); I10 Essential (primary) hypertension; R51.9 Headache, unspecified
CPT/HCPCS: 36415; 70450; 71045; 80053; 82550; 82553; 83690; 83735; 83880; 84484; 85025; 85379; 85610; 85730; 93005; 93010; 96374; 99284; 99285; J1885

== ENCOUNTER → 2022-05-11 11:01 | Outpatient (CLI) | payer MEDICARE, SELFPAY ==
[2022-05-11 13:49] LABS: Add Manual Diff / Slide Review NO; Basophils Absolute Auto 100 /uL (0-100); Basophils Percent Auto 1.3 % (0-2); Eosinophils Absolute Auto 300 /uL (0-450); Eosinophils Percent Auto 4.4 % (2-4); Hematocrit 40.6 % (36-46); Hemoglobin 13.5 g/dL (12.0-16.0); Lymphocytes Absolute Auto 1600 /uL (1100-4500); Lymphocytes Percent Auto 21.1 % (25-40); Mean Corpuscular HGB Conc 33.1 % (30-36); Mean Corpuscular Hemoglobin 29.5 PG (26-34); Monocytes Absolute Auto 800 /uL (0-900); Neutrophils Absolute Auto 4900 /uL (1500-7000); Neutrophils Percent Auto 63.2 % (50-75); Platelet Count 291 X10^3/uL (150-400); Red Blood Cell Count 4.56 X10^6/uL (4.0-5.2); Red Cell Distribution Width 13.8 % (11.6-14.8); White Blood Cell Count 7.7 X10^3/uL (4.5-11.0)
[2022-05-11 14:04] LABS: Erythrocyte Sedimentation Rate 22 MM/HR (0-20)
[2022-05-11 14:23] LABS: Alanine Aminotransferase 34 IU/L (<35); Albumin 4.3 g/dL (3.5-5.0); Albumin Globulin Ratio 1.3 (1.0-2.8); Alkaline Phosphatase 121 U/L (38-126); Aspartate Aminotransferase 33 IU/L (14-36); BUN Creatinine Ratio 21.5 (6-22); Bilirubin Total 0.5 mg/dL (0.2-1.3); Blood Urea Nitrogen 20 mg/dL (7-17); C-Reactive Protein Quant 3.8 mg/dL (<1.0); Calcium 9.1 mg/dL (8.4-10.2); Carbon Dioxide 30 mmol/L (22-32); Chloride 102 mmol/L (98-107); Cholesterol 229 mg/dL (140-199); Estimated Glomerular Filt Rate > 60 mL/min (>60); Globulin 3.3 g/dL (1.7-4.1); Glucose 96 mg/dL (80-110); HDL Cholesterol 38 mg/dL (40-60); HEMOLYSIS < 15 (0-50); LDL Cholesterol Calculated 158 mg/dL (<100); Potassium 4.3 mmol/L (3.4-5.1); Sodium 137 mmol/L (137-145); Total Protein 7.6 g/dL (6.3-8.2); Triglycerides 165 mg/dL (35-150)
[2022-05-11 14:38] LABS: Free T4, Direct Thyroxine 1.13 ng/dL (0.78-2.19)
[2022-05-11 14:52] LABS: Thyroid Stimulating Hormone 3.03 uIU/mL (0.47-4.68)
== END ==
PROVIDERS: Family Provider Internal Medicine; PCP Internal Medicine; Referring Provider Internal Medicine; Visit Provider Internal Medicine
DX: E03.9 Hypothyroidism, unspecified (principal); E78.2 Mixed hyperlipidemia; M32.9 Systemic lupus erythematosus, unspecified; M35.3 Polymyalgia rheumatica; R53.83 Other fatigue
CPT/HCPCS: 36415; 80053; 80061; 84439; 84443; 85025; 85651; 86140

== ENCOUNTER → 2022-05-22 14:27 | Outpatient (CLI) | payer MEDICARE, SELFPAY ==
--- NOTE | 2022-05-22 14:28 | DI.CT.S_ITS ---
PROCEDURE: CT SINUS SCREEN WO CON INDICATIONS: right sinus pain TECHNIQUE: Noncontrast 3.0 mm axial images acquired from the frontal sinuses to the mid-sella, with coronal and sagittal reformats. For radiation dose reduction, the following was used: automated exposure control, adjustment of mA and/or kV according to patient size. COMPARISON: None. FINDINGS: Image quality: Excellent. Maxillary Sinuses: The right maxillary sinus is opacified. The right ostiomeatal complex demonstrates prior FESS. The left ostiomeatal complex is patent. Ethmoid Air Cells: The right anterior ethmoid air cells are opacified. Sphenoid Sinuses: No bony remodeling or destruction. Sinuses are clear. Frontal Sinuses: The frontal sinuses are hypoplastic. Ostiomeatal Complexes: The left ostiomeatal complex is patent. The right ostiomeatal complex is status post FESS. Miscellaneous: Visualized intra-orbital contents are normal. No juanita bullosa or paradoxical turbinate curvature. No nasal septal deviation. IMPRESSION: 1. Right maxillary sinus and right anterior ethmoid air cell opacification. 2. The left maxillary sinus, left ethmoid air cells, and the sphenoid sinus are well aerated. 3. Hypoplastic frontal sinuses. Dictated by: Gonzalo Arnett M.D. on 05/22/2022 at 15:57 Approved by: Gonzalo Arnett M.D. on 05/22/2022 at 16:02
== END ==
PROVIDERS: Family Provider Internal Medicine; PCP Internal Medicine; Referring Provider Internal Medicine; Visit Provider Internal Medicine
DX: J32.8 Other chronic sinusitis; J34.89 Other specified disorders of nose and nasal sinuses
CPT/HCPCS: 70486

== ENCOUNTER → 2022-06-19 13:16 | Outpatient (CLI) | payer MEDICARE, SELFPAY ==
--- NOTE | 2022-06-19 14:31 | PM.TREADMILL ---
Cardiac Stress Test Report Referral & Results Date Patient Seen: 06/19/22 Time Patient Seen: 14:31 Requesting provider: Josue Granger Indication: Dyspnea with exertion Rest ECG: Unremarkable Procedure Note: Today following both written and verbal informed consent the patient was exercised according to a standard Jerome protocol patient went for a total of 3 minutes 7 seconds achieving a maximum heart rate of 149 maximum systolic blood pressure of 190. This is approximately 4.6 METS. Exercise was terminated at this point because of severe dyspnea which was early in onset and required slowing the treadmill prior to the end of the first stage. Patient was also given Cardiolite through a previously started Hep-Lock IV by the diagnostic imaging staff approximately 1 minute prior to the cessation of exercise. No ST-T segment changes noted No dysrhythmias Function aerobic impairment rates about 25% on the sedentary scale Impression: No evidence of ischemia based on usual criteria. Based on clinical impression during exercise portion of test patient appears to have some significant pulmonary source of symptoms Please see perfusion imaging report as well Please note: Actual ECG tracings can be found in the PACS system.
--- NOTE | 2022-06-20 23:29 | DI.NM.S_ITS ---
DATE OF SERVICE: 06/19/2022 PROCEDURE: Exercise treadmill stress and rest myocardial perfusion imaging with gating to assess ejection fraction and regional wall motion. ORDERING PROVIDER: Josue Granger MD INDICATIONS: The patient is a 72-year-old female with fatigue and exertional dyspnea. CARDIAC STRESS: The patient was able to exercise for 3 minutes and 7 seconds on a standard Jerome protocol suggesting moderately reduced exercise capacity with an AMADOU of +25%. She had an accelerated heart rate response to exercise with a resting heart rate of 96 bpm, increasing to 148 bpm after 3 minutes of exercise and achieving a maximum heart rate of 149 bpm (99% of her predicted maximum). She had a normal blood pressure response. She had no chest discomfort but had significant dyspnea. Her resting ECG shows sinus rhythm with normal ST segments, and there are no significant ST-segment shifts or arrhythmias with stress. Per protocol, 26.8 millicuries of technetium-99m Myoview was injected at 2 minutes and 5 seconds of exercise at a heart rate of 143 bpm and she was imaged 10 minutes later using a gated SPECT acquisition protocol. The following day, she was reinjected with an additional 26.8 millicuries of technetium-99m Myoview and was imaged 20 minutes later, again using a gated SPECT acquisition protocol. FINDINGS: 1. Raw data. There is fairly good myocardial tracer uptake. Lung/heart ratio is normal at 0.19 with a normal TID ratio 0.44. 2. Quantitated gated SPECT: Post-stress ejection fraction is estimated at 80% without any focal wall motion abnormality. Resting ejection fraction is 74% with a normal end-diastolic volume of 74 mL. 3. Myocardial perfusion imaging: Post-stress supine images show a normal myocardial perfusion pattern without any perfusion defects, supported by normal perfusion imaging in the prone position. The resting images show a slight defect in the distal anteroseptum, but there are no areas of improvement. IMPRESSION: 1. Normal myocardial perfusion study. 2. No perfusion defects to suggest myocardial ischemia or previous myocardial infarction. 3. Normal left ventricular size and systolic function without any focal wall motion abnormality. 4. Moderately reduced exercise capacity with an accelerated heart rate response to exercise, suggesting deconditioning, but no angina or ECG evidence of ischemia. Casandra Saleh - AMANDA/matilde/adolfo doc#: [id number]/job#: [id number] dd: 06/20/2022 17:06:00 dt: 06/20/2022 23:14:00 DICTATING MD/COPIES TO: Deni Mcrae MD; Josue Granger MD COPIES MNE: NABIL;
== END ==
PROVIDERS: Family Provider Internal Medicine; PCP Internal Medicine; Referring Provider Internal Medicine; Visit Provider Internal Medicine
DX: R53.83 Other fatigue (principal); R06.09 Other forms of dyspnea
CPT/HCPCS: 78452; 93016; 93017; 93018; A9502

== ENCOUNTER → 2023-05-15 11:36 | Outpatient (CLI) | payer MEDICARE, SELFPAY ==
[2023-05-15 12:18] LABS: Add Manual Diff / Slide Review NO; Basophils Absolute Auto 100 /uL (0-100); Basophils Percent Auto 1.3 % (0-2); Eosinophils Absolute Auto 300 /uL (0-450); Eosinophils Percent Auto 3.9 % (2-4); Hematocrit 42.1 % (36-46); Lymphocytes Absolute Auto 2300 /uL (1100-4500); Lymphocytes Percent Auto 34.9 % (25-40); Mean Corpuscular HGB Conc 33.1 % (30-36); Mean Corpuscular Hemoglobin 30.5 PG (26-34); Mean Corpuscular Volume 92.1 fL (80-100); Monocytes Absolute Auto 500 /uL (0-900); Monocytes Percent Auto 7.6 % (3-14); Neutrophils Absolute Auto 3500 /uL (1500-7000); Neutrophils Percent Auto 52.3 % (50-75); Platelet Count 244 X10^3/uL (150-400); Red Blood Cell Count 4.57 X10^6/uL (4.0-5.2); Red Cell Distribution Width 14.3 % (11.6-14.8); White Blood Cell Count 6.6 X10^3/uL (4.5-11.0)
[2023-05-15 12:52] LABS: Alanine Aminotransferase 21 IU/L (<35); Albumin 4.1 g/dL (3.5-5.0); Albumin Globulin Ratio 1.4 (1.0-2.8); Alkaline Phosphatase 94 U/L (38-126); Aspartate Aminotransferase 28 IU/L (14-36); BUN Creatinine Ratio 22.7 (6-22); Bilirubin Total 0.6 mg/dL (0.2-1.3); Blood Urea Nitrogen 22 mg/dL (7-17); Calcium 9.3 mg/dL (8.4-10.2); Carbon Dioxide 27 mmol/L (22-32); Chloride 107 mmol/L (98-107); Cholesterol 258 mg/dL (140-199); Estimated Glomerular Filt Rate > 60 mL/min (>60); Globulin 2.9 g/dL (1.7-4.1); Glucose 86 mg/dL (80-110); HDL Cholesterol 56 mg/dL (40-60); HEMOLYSIS < 15 (0-50); LDL Cholesterol Calculated 179 mg/dL (<100); Potassium 4.6 mmol/L (3.4-5.1); Sodium 139 mmol/L (137-145); Triglycerides 113 mg/dL (35-150)
[2023-05-15 13:02] LABS: Erythrocyte Sedimentation Rate 6 MM/HR (0-20)
[2023-05-15 13:06] LABS: Free T4, Direct Thyroxine 1.09 ng/dL (0.78-2.19)
== END ==
PROVIDERS: Family Provider Internal Medicine; PCP Internal Medicine; Referring Provider Internal Medicine; Visit Provider Internal Medicine
DX: E78.2 Mixed hyperlipidemia (principal); E03.9 Hypothyroidism, unspecified; M35.3 Polymyalgia rheumatica
CPT/HCPCS: 36415; 80053; 80061; 84439; 84443; 85025; 85651

== ENCOUNTER 2023-06-13 12:31 | Emergency (ER) | payer MEDICARE, SELFPAY ==
[2023-06-13 12:33] VITALS: BP 184/75; PULSE 89; RESP 18; TEMP 36.6; O2SAT 96; BMI 30.5
--- NOTE | 2023-06-13 12:59 | DI.CT.S_ITS ---
PROCEDURE: CT HEAD/BRAIN WO CON INDICATIONS: Possible TIA, word-finding issues TECHNIQUE: Noncontrast 4.5 mm thick angled axial sections acquired from the foramen magnum to the vertex, with coronal and sagittal reformats. For radiation dose reduction, the following was used: automated exposure control, adjustment of mA and/or kV according to patient size. COMPARISON: [facility], CT, CT HEAD/BRAIN WO CON, 05/08/2022, 13:55. FINDINGS: Image quality: Diagnostic. CSF spaces: Basal cisterns are patent. No extra-axial fluid collections. The ventricles are symmetric in size and shape. Brain: No intracranial bleeds or masses. There is cerebral volume loss for age, with resultant ventricular and sulcal prominence. There are periventricular and deep white matter chronic small vessel ischemic changes. There is intracranial internal carotid artery atherosclerosis. Skull and face: Calvarium and visualized facial bones appear intact, without suspicious lesions. Sinuses: Opacification of the right maxillary sinus, with hyperdense material seen within it. There is moderate mucosal thickening seen involving anterior right ethmoid air cells. No abnormal fluid is seen within the mastoid air cells. IMPRESSION: No acute intracranial hemorrhage is seen. No acute intracranial pathology. If there is strong clinical suspicion for an acute stroke, please consider a brain MRI for further evaluation, as it is more sensitive (assuming that there is no contraindication to MRI). Stable focal opacification of the right maxillary sinus. Hyperdense material can be seen within it. Please consider fungal sinusitis. Dictated by: Mikie Fortune M.D. on 06/13/2023 at 12:51 Approved by: Mikie Fortune M.D. on 06/13/2023 at 12:52
[2023-06-13 13:16] VITALS: PULSE 76; RESP 16
[2023-06-13 13:18] VITALS: BP 142/80; PULSE 79; O2SAT 98
[2023-06-13 13:30] VITALS: PULSE 78; RESP 21; O2SAT 97
[2023-06-13 13:35] LABS: Add Manual Diff / Slide Review NO; Basophils Absolute Auto 100 /uL (0-100); Basophils Percent Auto 1.2 % (0-2); Eosinophils Absolute Auto 300 /uL (0-450); Eosinophils Percent Auto 4.2 % (2-4); Hematocrit 40.6 % (36-46); Hemoglobin 13.6 g/dL (12.0-16.0); Lymphocytes Absolute Auto 2200 /uL (1100-4500); Lymphocytes Percent Auto 30.6 % (25-40); Mean Corpuscular HGB Conc 33.4 % (30-36); Mean Corpuscular Hemoglobin 30.4 PG (26-34); Mean Corpuscular Volume 91.1 fL (80-100); Monocytes Absolute Auto 500 /uL (0-900); Monocytes Percent Auto 7.3 % (3-14); Neutrophils Absolute Auto 4100 /uL (1500-7000); Neutrophils Percent Auto 56.7 % (50-75); Platelet Count 261 X10^3/uL (150-400); Red Blood Cell Count 4.46 X10^6/uL (4.0-5.2); Red Cell Distribution Width 13.9 % (11.6-14.8); White Blood Cell Count 7.2 X10^3/uL (4.5-11.0)
[2023-06-13 13:36] LABS: Alanine Aminotransferase 24 IU/L (<35); Albumin 4.6 g/dL (3.5-5.0); Albumin Globulin Ratio 1.8 (1.0-2.8); Alkaline Phosphatase 98 U/L (38-126); Aspartate Aminotransferase 31 IU/L (14-36); BUN Creatinine Ratio 21.1 (6-22); Bilirubin Total 0.5 mg/dL (0.2-1.3); Blood Urea Nitrogen 19 mg/dL (7-17); Calcium 9.1 mg/dL (8.4-10.2); Carbon Dioxide 29 mmol/L (22-32); Chloride 106 mmol/L (98-107); Estimated Glomerular Filt Rate > 60 mL/min (>60); Globulin 2.6 g/dL (1.7-4.1); Glucose 82 mg/dL (80-110); HEMOLYSIS < 15 (0-50); Potassium 4.1 mmol/L (3.4-5.1); Sodium 140 mmol/L (137-145); Total Protein 7.2 g/dL (6.3-8.2)
--- NOTE | 2023-06-13 14:13 | ED_ITS ---
HPI - Neuro Symptoms/Deficit General Chief Complaint: Neuro Symptoms/Deficit Stated Complaint: per pt TIA Time Seen by Provider: 06/13/23 12:57 Source: patient Mode of arrival: Ambulatory History of Present Illness HPI Narrative: Patient is a 73-year-old female. Has a history of high cholesterol. Here for evaluation of what she states is progressively worsening episodes that she has been having over the past 6 weeks where she states that she was at her normal state of health and then has a very sudden onset of nausea and then approximately 30 seconds to 1 minute of having word-finding issues. During that time she has no other associated symptoms to include chest pain or palpitations or headache or vision changes or balance issues or nausea or vomiting. She states initially they were very sporadic but now have become more frequently to her she is having 1 each day. She stated that she was at work today when today's event happened. She had her vital signs taken at work and was told that her heart rate was in the 180s. She has not been tachycardic here in the ER. She was asymptomatic now here in the ER. On Anticoagulants: No Related Data Previous Rx's Medication Instructions Recorded celecoxib 200 mg capsule (Celebrex) 200 mg PO Q DAY #90 caps 04/16/23 simvastatin 40 mg tablet 20 mg (1/2 x 40 mg) PO Q DAY #45 04/16/23 tabs trazodone 100 mg tablet 100 mg PO HS #90 tabs 04/16/23 Allergies Allergy/AdvReac Type Severity Reaction Status Date / Time No Known Drug Allergies Allergy Verified 05/18/23 09:33 Review of Systems Review of Systems ROS Unobtainable: All systems reviewed & are unremarkable except as noted in HPI and below Hematologic/Lymphatic On Anticoagulants: No Patient History Medical History COVID-19 Facet arthropathy, lumbar 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 Polymyalgia rheumatica (03/02/03) Systemic lupus erythematosus (12/19/01) Spondylolisthesis at L4-L5 level Lumbosacral spondylosis with radiculopathy Sacral dysfunction Acquired hypothyroidism (05/16/16) Calculus of kidney (05/01/13) Hyperlipidemia (05/10/11) Depression (05/10/11) Menopausal syndrome (04/08/03) Surgical History Status post breast biopsy Family History Mother Family history of TIAs Social History household members: spouse Smoking Status: Never smoker alcohol intake: never Smoking Status: Never smoker Substance Use Type: does not use Exam Initial Vital Signs Initial Vital Signs: Vital Signs Temperature 97.8 F 06/13/23 12:33 Pulse Rate 89 06/13/23 12:33 Respiratory Rate 18 06/13/23 12:33 Blood Pressure 184/75 H 06/13/23 12:33 Pulse Oximetry 96 06/13/23 12:33 Oxygen Delivery Method Room Air 06/13/23 12:33 Const General: cooperative, comfortable and No ill appearing HENMT Head: normal to inspection and normocephalic Resp Effort & Inspection: normal respiratory effort Auscultation: clear to auscultation bilaterally Cardio Rate: regular rate Rhythm: regular rhythm GI Inspection: normal to inspection and non-distended Palpation: soft and No tender Skin General: no rashes or lesions noted Neuro General: patient alert, patient awake, patient oriented x3 and moves all extremities Cognition: normal cognition Speech: speech normal Gait: normal gait Motor: muscle tone normal throughout Sensory Exam: no sensory deficits noted Extrem General: normal to inspection Scores ABCD2 Age >= 60 years: yes Initial BP. Either SBP >= 140 or DBP >= 90.: yes Clinical features of the TIA: speech disturbance without weakness Duration of symptoms: < 10 minutes History of diabetes: no ABCD2 Score: 3 GCS Bushnell coma scale eye opening: Spontaneous Bushnell coma scale verbal response: Orientated Robbie coma scale motor response: Obey commands Robbie coma scale total score: 15 Course Orders Ordered: ED Orders 06/13/23 12:57 Complete Blood Count AUTO DIFF Stat Comprehensive Metabolic Panel Stat 06/13/23 12:59 CT head/brain wo con Stat 06/13/23 13:02 EKG-12 Lead Stat Vital Signs Vital signs: Vital Signs - 8 hr 06/13/23 12:33 Temperature 97.8 F Pulse Rate 89 Respiratory Rate 18 Blood Pressure 184/75 H Pulse Oximetry 96 Oxygen Delivery Method Room Air MDM - Neuro Symptoms/Deficit Lab Data Attestation: I reviewed the patient's lab results. 06/13/23 12:57 06/13/23 12:57 Labs: Lab Results 06/13/23 Range/Units 12:57 WBC 7.2 (4.5-11.0) X10^3/uL RBC 4.46 (4.0-5.2) X10^6/uL Hgb 13.6 (12.0-16.0) g/dL Hct 40.6 (36-46) % MCV 91.1 (80-100) fL MCH 30.4 (26-34) PG MCHC 33.4 (30-36) % RDW 13.9 (11.6-14.8) % Plt Count 261 (150-400) X10^3/uL Neut % (Auto) 56.7 (50-75) % Lymph % (Auto) 30.6 (25-40) % Granite % (Auto) 7.3 (3-14) % Eos % (Auto) 4.2 H (2-4) % Baso % (Auto) 1.2 (0-2) % Neut # (Auto) 4100 (9790-6942) /uL Lymph # (Auto) 2200 (0260-3938) /uL Granite # (Auto) 500 (0-900) /uL Eos # (Auto) 300 (0-450) /uL Baso # (Auto) 100 (0-100) /uL Sodium 140 (137-145) mmol/L Potassium 4.1 (3.4-5.1) mmol/L Chloride 106 (98-107) mmol/L Carbon Dioxide 29 (22-32) mmol/L BUN 19 H (7-17) mg/dL Creatinine 0.90 (0.52-1.04) mg/dL Estimated GFR > 60 (>60) mL/min BUN/Creatinine Ratio 21.1 (6-22) Glucose 82 (80-110) mg/dL Calcium 9.1 (8.4-10.2) mg/dL Total Bilirubin 0.5 (0.2-1.3) mg/dL AST 31 (14-36) IU/L ALT 24 (<35) IU/L Alkaline Phosphatase 98 (38-126) U/L Total Protein 7.2 (6.3-8.2) g/dL Albumin 4.6 (3.5-5.0) g/dL Globulin 2.6 (1.7-4.1) g/dL Albumin/Globulin Ratio 1.8 (1.0-2.8) Imaging Data CT scan - head: Radiologist's Impression: PROCEDURE: CT HEAD/BRAIN WO CON INDICATIONS: Possible TIA, word-finding issues TECHNIQUE: Noncontrast 4.5 mm thick angled axial sections acquired from the foramen magnum to the vertex, with coronal and sagittal reformats. For radiation dose reduction, the following was used: automated exposure control, adjustment of mA and/or kV according to patient size. COMPARISON: [facility], CT, CT HEAD/BRAIN WO CON, 05/08/2022, 13:55. FINDINGS: Image quality: Diagnostic. CSF spaces: Basal cisterns are patent. No extra-axial fluid collections. The ventricles are symmetric in size and shape. Brain: No intracranial bleeds or masses. There is cerebral volume loss for age, with resultant ventricular and sulcal prominence. There are periventricular and deep white matter chronic small vessel ischemic changes. There is intracranial internal carotid artery atherosclerosis. Skull and face: Calvarium and visualized facial bones appear intact, without suspicious lesions. Sinuses: Opacification of the right maxillary sinus, with hyperdense material seen within it. There is moderate mucosal thickening seen involving anterior right ethmoid air cells. No abnormal fluid is seen within the mastoid air cells. IMPRESSION: No acute intracranial hemorrhage is seen. No acute intracranial pathology. If there is strong clinical suspicion for an acute stroke, please consider a brain MRI for further evaluation, as it is more sensitive (assuming that there is no contraindication to MRI). Stable focal opacification of the right maxillary sinus. Hyperdense material can be seen within it. Please consider fungal sinusitis. ECG Data Attestation: I personally reviewed and interpreted this ECG as follows: Interpretation: Sinus rhythm Ventricular rate is 74 Normal axis Normal QRS Normal QTC No ST T wave changes MDM Narrative Medical decision making narrative: Patient is now currently asymptomatic. Head CT is unremarkable. EKG is unremarkable. Has a low risk ABCD2 score. She has on a statin. She also recently just started on an aspirin. We did discuss the possibility of a transient arrhythmia given the reported high heart rate during the event today although here in the ER she has not had anything like this. Plan will be to discharge home and have her contact her primary doctor to discuss further workup. She was given return precautions. She expressed understanding and agreement. Discharge Plan Departure Patient Disposition: Home Clinical Impression: Brain TIA Instructions: DI for Transient Ischemic Attack Activity Restrictions/Additional Instructions: Continue to take all of your medications as directed to include the aspirin that you started a couple days ago. Recommend that you contact your primary doctor to discuss further workup to include a Holter monitor and also further evaluation to include an MRI. Return to the emergency department for new or worsening symptoms like we discussed. Prescriptions: No Action simvastatin 40 mg tablet 20 mg PO Q DAY Qty: 45 3RF trazodone 100 mg tablet 100 mg PO HS Qty: 90 3RF celecoxib [Celebrex] 200 mg capsule 200 mg PO Q DAY Qty: 90 3RF Hold Instructions: Home Medication placed on hold at Doctor's office Referrals: Josue Granger MD [Primary Care Provider] - Stand Alone Forms: Patient Portal/API
[2023-06-13 14:31] VITALS: BP 152/72; PULSE 81; RESP 18; TEMP 36.5; O2SAT 99
== END 2023-06-13 14:35 | disposition home or self-care (01) ==
PROVIDERS: Emergency Provider Emergency Medicine; Family Provider Internal Medicine; PCP Internal Medicine
DX: G45.9 Transient cerebral ischemic attack, unspecified (principal)
CPT/HCPCS: 36415; 70450; 80053; 85025; 93005; 99284

== ENCOUNTER 2023-06-17 11:38 | Observation (INO) | payer MEDICARE, SELFPAY ==
[2023-06-17] VITALS (20 sets, daily range): BP systolic 145–214; BP diastolic 67–86; PULSE 74–134; RESP 11–30; TEMP 36.2; O2SAT 96–100; BMI 30.7; BMI 29.5
--- NOTE | 2023-06-17 11:58 | PC.NURSE ---
Pt reports being seen last Sunday for a TIA. Pt takes 81mg aspirin daily the past week. She reports being at work this morning at 0930 when she noticed having a hard time tracking my documentation and checked her blood pressure. Hypertensive. Pt went home to rest. While laying in bed patient developed 4/10 chest pain. Denies dizziness, lightheaded, SOB. fuzzy, dull headache 4/10. Denies blurry vision.
--- NOTE | 2023-06-17 12:05 | DI.CT.S_ITS ---
PROCEDURE: CT STROKE INDICATIONS: Expressive aphasia TECHNIQUE: Noncontrast 4.5 mm thick angled axial sections acquired from the foramen magnum to the vertex, with coronal reformats. For radiation dose reduction, the following was used: automated exposure control, adjustment of mA and/or kV according to patient size. COMPARISON: [facility], CT, CT HEAD/BRAIN WO CON, 06/13/2023, 13:35. [facility], CT, CT HEAD/BRAIN WO CON, 05/08/2022, 13:55. FINDINGS: Image quality: Diagnostic. CSF spaces: Basal cisterns are patent. No extra-axial fluid collections. Ventricles are normal in size and shape. Brain: No midline shift. No intracranial masses or hemorrhage. No area of hypodensity in a large vascular distribution to suggest acute infarction. Periventricular hypodensity consistent with chronic microvascular ischemic change. Age-related parenchymal loss. Skull and face: Calvarium and visualized facial bones are intact, without suspicious lesions. Sinuses: Opacification of the right maxillary sinus, unchanged. Mastoids are clear. IMPRESSION: No acute intracranial pathology. No interval change appreciated. Chronic right maxillary sinusitis. Comment: Findings were discussed with Luis Ramos at 12:27 p.m. This study fulfills neurological imaging criteria for inclusion or exclusion of acute stroke therapies based on available published neurological imaging guidelines. Dictated by: Raymond Gold M.D. on 06/17/2023 at 12:24 Approved by: Raymond Gold M.D. on 06/17/2023 at 12:28
--- NOTE | 2023-06-17 12:05 | DI.RAD.S_ITS ---
PROCEDURE: XR CHEST 1V INDICATIONS: chest pain TECHNIQUE: One view of the chest was acquired. COMPARISON: [facility], CR, XR CHEST 1V, 05/08/2022, 12:06. FINDINGS: Surgical changes and devices: None. Lungs and pleura: Lungs are clear. No pleural effusions or pneumothorax. Mediastinum: Mediastinal contours appear normal. Heart size is normal. Bones and chest wall: No suspicious bony lesions. Overlying soft tissues appear unremarkable. IMPRESSION: No acute cardiopulmonary abnormality is seen. Dictated by: Luis Wright M.D. on 06/17/2023 at 11:36 Approved by: Luis Wright M.D. on 06/17/2023 at 11:37
--- NOTE | 2023-06-17 12:07 | ED.CHESTPAIN ---
HPI - Chest Pain General Chief Complaint: Chest Pain Stated Complaint: chest pain, had TIA earlier today. High BP Time Seen by Provider: 06/17/23 11:53 Source: patient Mode of arrival: Ambulatory History of Present Illness HPI narrative: Patient here with . Has had frequent episodes of expressive aphasia only in the past 1 week. Seen here Sunday and had head CT and discharged home. Has a appointment with primary care Dr. Granger tomorrow in the office. Patient took 81 mg aspirin today. 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 While at home she took a nap and awoke with substernal chest pain 09/04. No nausea sweating radiation dyspnea. Patient in no distress at this time. EKG is reassuring. Patient has stress test last year, May 2022, it was normal. Patient did have 1 episode of expressive aphasia here. But resolved. Fast exam is negative. Patient never had any slurred speech or facial droop or limb weakness or numbness through the course of the week. Related Data Previous Rx's Medication Instructions Recorded celecoxib 200 mg capsule (Celebrex) 200 mg PO Q DAY #90 caps 04/16/23 simvastatin 40 mg tablet 20 mg (1/2 x 40 mg) PO Q DAY #45 04/16/23 tabs trazodone 100 mg tablet 100 mg PO HS #90 tabs 04/16/23 Allergies Allergy/AdvReac Type Severity Reaction Status Date / Time No Known Drug Allergies Allergy Verified 05/18/23 09:33 Review of Systems Review of Systems Narrative: GENERAL: negative chills, fatigue, malaise, fever, sweats. HEENT: negative sinus pain, ear pain, sore throat RESPIRATORY: negative dyspnea, cough CARDIOVASCULAR: Positive chest pain, negative palpitations GASTROINTESTINAL: negative nausea, vomiting, abdominal pain : negative dysuria, frequency, hematuria MUSCULOSKELETAL: negative muscle or bony pain SKIN: negative rash, skin lesions NEUROLOGIC: negative weakness, numbness, positive expressive aphasia Patient History Medical History COVID-19 Facet arthropathy, lumbar 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 Polymyalgia rheumatica (03/02/03) Systemic lupus erythematosus (12/19/01) Spondylolisthesis at L4-L5 level Lumbosacral spondylosis with radiculopathy Sacral dysfunction Acquired hypothyroidism (05/16/16) Calculus of kidney (05/01/13) Hyperlipidemia (05/10/11) Depression (05/10/11) Menopausal syndrome (04/08/03) Surgical History Status post breast biopsy Family History Mother Family history of TIAs Social History household members: spouse Smoking Status: Never smoker alcohol intake: never Smoking Status: Never smoker Substance Use Type: does not use Exam Narrative Exam Narrative: GENERAL: in no distress, not toxic not dyspneic HEAD: Normocephalic. EYES: Pupils equal round ENT: Mucous membranes moist. NECK: Trachea midline. CARDIOVASCULAR: Regular rate and rhythm RESPIRATORY: Clear to auscultation. Breath sounds equal bilaterally. No wheezes, rales, or rhonchi. GASTROINTESTINAL: Abdomen soft, non-tender EXTREMITIES: No gross deformities. BACK: No flank tenderness. NEURO: AOx4. Clear speech no facial droop. ?Light touch intact to bilateral face hands and feet. ?Strong equal shopping centre manager bilaterally and ankle flexion hip flexion and knee flexion. ?Strong bilateral patellar reflexes. ?No pronator drift. ?Cwhsjn-rl-hqqj rkth-oy-vhyh intact bilaterally SKIN: Warm and dry PSYCH: Not anxious, is cooperative Initial Vital Signs Initial Vital Signs: Vital Signs Pulse Rate 76 06/17/23 11:42 Scores NIH Stroke Scale Level of Conciousness: Alert, keenly responsive Ask month/age: Answers both questions correctly. Open/close eyes, close hand: Performs both tasks correctly Best gaze horizontal: Normal Visual barajas: No visual loss Facial palsy: Normal symetrical movement Left arm drift: No drift for full 10 sec Right arm drift: No drift for full 10 sec Left leg drift: No drift for full 5 sec Right leg drift: No drift for full 5 sec Limb ataxia: Absent Sensory on face/arms/legs: Normal, no sensory loss Best language: No aphasia, normal Dysarthria: Normal Extinction or inattention: No abnormality Total NIH Stroke scale score: 0 Course Orders Ordered: ED Orders 06/17/23 11:40 Complete Blood Count AUTO DIFF Stat Comprehensive Metabolic Panel Stat PTT Partial Thromboplastin Mainor Stat Prothrombin Time INR Stat Troponin & CK Cardiac Panel Stat 06/17/23 12:05 CT Stroke Stat XR chest 1V Stat 06/17/23 12:06 CT angio head and neck Stat Discontinued Medications Aspirin (Aspirin Ec 81 Mg Tablet) 81 mg PO NOW ONE Stop: 06/17/23 12:05 Last Admin: 06/17/23 12:37 Dose: 81 mg Documented By: TA Aspirin (Aspirin Ec 81 Mg Tablet) 81 mg PO NOW ONE Stop: 06/17/23 12:05 Last Admin: 06/17/23 12:37 Dose: 81 mg Documented By: TA Aspirin (Aspirin Ec 81 Mg Tablet) 81 mg PO NOW ONE Stop: 06/17/23 12:06 Last Admin: 06/17/23 12:37 Dose: 81 mg Documented By: TA Sodium Chloride (Normal Saline 0.9%) 500 mls @ 1,000 mls/hr IV BOLUS ONE Stop: 06/17/23 12:34 Last Infusion: 06/17/23 13:04 Dose: Infused Documented By: Admin: 06/17/23 12:37 Dose: 1,000 mls/hr Documented By: TA Nitroglycerin (Nitroglycerin Oint 1 Inch/Gm Oint...G.) 1 inch TOP NOW ONE Stop: 06/17/23 12:59 Last Admin: 06/17/23 13:03 Dose: 1 inch Documented By: NIKO Vital Signs Vital signs: Vital Signs - 8 hr 06/17/23 11:42 06/17/23 11:44 06/17/23 11:44 Pulse Rate 76 79 Respiratory Rate 11 L Blood Pressure 214/86 H Pulse Oximetry 100 Oxygen Delivery Method Room Air 06/17/23 11:46 06/17/23 11:46 06/17/23 11:48 Pulse Rate 86 80 Respiratory Rate 21 20 Blood Pressure 189/79 H 189/79 H Pulse Oximetry 100 100 Oxygen Delivery Method Room Air Room Air 06/17/23 12:00 06/17/23 12:30 06/17/23 12:46 Pulse Rate 76 78 Respiratory Rate 20 17 Blood Pressure 193/76 H Pulse Oximetry 99 99 Oxygen Delivery Method 06/17/23 12:46 06/17/23 13:00 06/17/23 13:01 Pulse Rate 82 80 Respiratory Rate 13 26 H Blood Pressure 164/71 H Pulse Oximetry 99 96 Oxygen Delivery Method Room Air 06/17/23 13:01 06/17/23 13:03 06/17/23 13:15 Pulse Rate 79 76 Respiratory Rate 18 Blood Pressure 164/71 H 158/72 H Pulse Oximetry 98 Oxygen Delivery Method Room Air 06/17/23 13:15 06/17/23 13:30 06/17/23 13:30 Pulse Rate 77 74 Respiratory Rate 21 21 Blood Pressure 164/68 H Pulse Oximetry 97 96 Oxygen Delivery Method Room Air MDM - Chest Pain Lab Data 06/17/23 11:40 06/17/23 11:40 Labs: Lab Results 06/17/23 Range/Units 11:40 WBC 8.4 (4.5-11.0) X10^3/uL RBC 4.47 (4.0-5.2) X10^6/uL Hgb 13.6 (12.0-16.0) g/dL Hct 40.9 (36-46) % MCV 91.5 (80-100) fL MCH 30.3 (26-34) PG MCHC 33.1 (30-36) % RDW 14.1 (11.6-14.8) % Plt Count 263 (150-400) X10^3/uL Neut % (Auto) 53.5 (50-75) % Lymph % (Auto) 35.2 (25-40) % [place] % (Auto) 7.3 (3-14) % Eos % (Auto) 3.1 (2-4) % Baso % (Auto) 0.9 (0-2) % Neut # (Auto) 4500 (3566-3492) /uL Lymph # (Auto) 2900 (1765-6881) /uL [place] # (Auto) 600 (0-900) /uL Eos # (Auto) 300 (0-450) /uL Baso # (Auto) 100 (0-100) /uL PT 11.9 (9.4-12.5) SECONDS INR 1.0 (0.9-1.3) APTT 38 H (25.1-36.5) SECONDS Sodium 139 (137-145) mmol/L Potassium 4.3 (3.4-5.1) mmol/L Chloride 108 H (98-107) mmol/L Carbon Dioxide 28 (22-32) mmol/L BUN 23 H (7-17) mg/dL Creatinine 0.81 (0.52-1.04) mg/dL Estimated GFR > 60 (>60) mL/min BUN/Creatinine Ratio 28.4 H (6-22) Glucose 91 (80-110) mg/dL Calcium 9.5 (8.4-10.2) mg/dL Total Bilirubin 0.5 (0.2-1.3) mg/dL AST 31 (14-36) IU/L ALT 25 (<35) IU/L Alkaline Phosphatase 93 (38-126) U/L Total Creatine Kinase 154 H (30-135) U/L Troponin I < 0.012 (0.01-0.034) ng/mL Total Protein 7.3 (6.3-8.2) g/dL Albumin 4.5 (3.5-5.0) g/dL Globulin 2.8 (1.7-4.1) g/dL Albumin/Globulin Ratio 1.6 (1.0-2.8) Imaging Data Chest x-ray: Radiologist's Impression: [address] [address] XRay Report Signed Patient: Casandra Saleh MR#: [id number] : 1950 Acct:[id number] Age/Sex: 73 / F Date of Service: 06/17/23 Loc: ED Accession Number: [id number] Procedure: XR chest 1V Ordering Provider: Luis Ramos MD PROCEDURE: XR CHEST 1V INDICATIONS: chest pain TECHNIQUE: One view of the chest was acquired. COMPARISON: [facility], , XR CHEST 1V, 05/08/2022, 12:06. FINDINGS: Surgical changes and devices: None. Lungs and pleura: Lungs are clear. No pleural effusions or pneumothorax. Mediastinum: Mediastinal contours appear normal. Heart size is normal. Bones and chest wall: No suspicious bony lesions. Overlying soft tissues appear unremarkable. IMPRESSION: No acute cardiopulmonary abnormality is seen. Dictated by: Luis Wright M.D. on 06/17/2023 at 11:36 Approved by: Luis Wright M.D. on 06/17/2023 at 11:37 CT scan - head: Radiologist's Impression: [address] [address] [address] Scan Report Signed Patient: Casandra Saleh MR#: [id number] : 1950 Acct:[id number] Age/Sex: 73 / F Date of Service: 06/17/23 Loc: ED Accession Number: [id number] Procedure: CT Stroke Ordering Provider: Luis Ramos MD PROCEDURE: CT STROKE INDICATIONS: Expressive aphasia TECHNIQUE: Noncontrast 4.5 mm thick angled axial sections acquired from the foramen magnum to the vertex, with coronal reformats. For radiation dose reduction, the following was used: automated exposure control, adjustment of mA and/or kV according to patient size. COMPARISON: [facility], CT, CT HEAD/BRAIN WO CON, 06/13/2023, 13:35. [facility], CT, CT HEAD/BRAIN WO CON, 05/08/2022, 13:55. FINDINGS: Image quality: Diagnostic. CSF spaces: Basal cisterns are patent. No extra-axial fluid collections. Ventricles are normal in size and shape. Brain: No midline shift. No intracranial masses or hemorrhage. No area of hypodensity in a large vascular distribution to suggest acute infarction. Periventricular hypodensity consistent with chronic microvascular ischemic change. Age-related parenchymal loss. Skull and face: Calvarium and visualized facial bones are intact, without suspicious lesions. Sinuses: Opacification of the right maxillary sinus, unchanged. Mastoids are clear. IMPRESSION: No acute intracranial pathology. No interval change appreciated. Chronic right maxillary sinusitis. Comment: Findings were discussed with Luis Ramos at 12:27 p.m. This study fulfills neurological imaging criteria for inclusion or exclusion of acute stroke therapies based on available published neurological imaging guidelines. Dictated by: Raymond Gold M.D. on 06/17/2023 at 12:24 Approved by: Raymond Gold M.D. on 06/17/2023 at 12:28 CTA - brain/neck: Radiologist's Impression: [address] [address] [address] Scan Report Signed Patient: Casandra Saleh MR#: [id number] : 1950 Acct:[id number] Age/Sex: 73 / F Date of Service: 06/17/23 Loc: ED Accession Number: [id number] Procedure: CT angio head and neck Ordering Provider: Luis Ramos MD PROCEDURE: CT ANGIO HEAD AND NECK INDICATIONS: Expressive aphasia TECHNIQUE: After the administration of intravenous contrast, 1 mm thick sections acquired from the aortic arch through the [place]. 3-dimensional wwiijzq-ahmbakxga-xvfovckmaq (MIP) and/or volume rendering reformats were acquired of the central intracranial vasculature and neck separately. For radiation dose reduction, the following was used: automated exposure control, adjustment of mA and/or kV according to patient size. COMPARISON: None. FINDINGS: Image quality: Diagnostic. BRAIN: CSF spaces: Ventricles are normal in size and shape. Basal cisterns are patent. No extra-axial fluid collections. Brain: No significant abnormality of the brain can be seen. Skull and face: Calvarium and facial bones appear intact, without suspicious lesions. Orbits appear normal. Sinuses: Sinuses and mastoids are clear. HEAD CT ANGIOGRAPHY: Anterior circulation: Intracranial internal carotid arteries are normal in size and flow. The flow within the paired anterior cerebral arteries is normal and symmetric. The flow within the middle cerebral arteries is normal and symmetric. The anterior communicating artery is seen. No aneurysms are seen. Posterior circulation: Visualized portions of the vertebral arteries demonstrate normal caliber, and join to form a normal appearing basilar artery. Flow within the posterior cerebral arteries is normal and symmetric. No aneurysms are seen. NECK CT ANGIOGRAPHY: Carotid system: The great vessels demonstrate a conventional anatomy as they arise from the aortic arch. The origins of the common carotid arteries appear patent. The common carotid arteries demonstrate normal caliber and courses. The bifurcation regions are both widely patent. The internal carotid arteries demonstrate normal calibers and courses. Posterior circulation: The origins of the vertebral arteries both appear widely patent. The more superior extracranial portions of both vertebral arteries also demonstrate normal courses and calibers. They join to form a normal appearing basilar artery. Soft tissues: Visualized neck soft tissues demonstrate no suspicious abnormalities. Bones: No suspicious bony lesions. Visualized cervical spine appears normally aligned. IMPRESSION: No significant intracranial arterial abnormality is seen. No significant abnormality is seen within the arteries of the neck. Any quantitative measurements of stenosis were performed using NASCET criteria. Dictated by: Luis Wright M.D. on 06/17/2023 at 11:31 Approved by: Luis Wright M.D. on 06/17/2023 at 11:36 MDM Narrative Medical decision making narrative: Patient here with . Has had frequent episodes of expressive aphasia only in the past 1 week. Seen here Sunday and had head CT and discharged home. Has a appointment with primary care Dr. Granger tomorrow in the office. Patient took 81 mg aspirin today. 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 While at home she took a nap and awoke with substernal chest pain 7/10. No nausea sweating radiation dyspnea. Patient in no distress at this time. EKG is reassuring. Patient has stress test last year, May 2022, it was normal. Patient did have 1 episode of expressive aphasia here. But resolved. Fast exam is negative. Patient never had any slurred speech or facial droop or limb weakness or numbness through the course of the week After history and exam CT head CT angiogram head and neck EKG CBC CMP troponin normal saline aspirin MDM Medical records reviewed: June 13, 2023 visit here Differential considered: Includes but not limited to stroke TIA stress anxiety STEMI non-STEMI angina unstable angina Lab Test results independently reviewed as above. Pertinent findings: Troponin less than 0.012 Independently reviewed EKG normal sinus rhythm rate [address] elevation or depression Imaging studies independently reviewed: CT head CT angiogram head and neck chest x-ray no acute finding Consultations: 1:20 p.m.. Spoke with primary care on-call, Dr. Gallegos, on-call for Dr. Granger, who will admit patient. Treatments: Aspirin normal saline nitro paste Re-evaluations: 1:10 p.m.. Updated patient and results., they agree for admission. Discussion: Appropriate for admission for balance or workup for TIA. Patient already seen last week and discharged home for this complaint. Appropriate for admission for this episode. Exam is reassuring. No tPA indicated this time. Symptoms have resolved. No surgical vascular studies as no large vessel occlusion Diagnosis: TIA/chest pain Discharge Plan Departure Patient Disposition: Admitted as Observation Clinical Impression: Brain TIA, Atypical chest pain Admit Date/Time: 06/17/23 13:55 Admit Provider: Bassam Gallegos
[2023-06-17 12:15] LABS: Prothrombin Time 11.9 SECONDS (9.4-12.5)
[2023-06-17 12:17] LABS: Add Manual Diff / Slide Review NO; Basophils Absolute Auto 100 /uL (0-100); Basophils Percent Auto 0.9 % (0-2); Eosinophils Absolute Auto 300 /uL (0-450); Eosinophils Percent Auto 3.1 % (2-4); Hematocrit 40.9 % (36-46); Hemoglobin 13.6 g/dL (12.0-16.0); Lymphocytes Absolute Auto 2900 /uL (1100-4500); Lymphocytes Percent Auto 35.2 % (25-40); Mean Corpuscular HGB Conc 33.1 % (30-36); Mean Corpuscular Hemoglobin 30.3 PG (26-34); Mean Corpuscular Volume 91.5 fL (80-100); Monocytes Absolute Auto 600 /uL (0-900); Monocytes Percent Auto 7.3 % (3-14); Neutrophils Absolute Auto 4500 /uL (1500-7000); Neutrophils Percent Auto 53.5 % (50-75); Platelet Count 263 X10^3/uL (150-400); Red Blood Cell Count 4.47 X10^6/uL (4.0-5.2); Red Cell Distribution Width 14.1 % (11.6-14.8); White Blood Cell Count 8.4 X10^3/uL (4.5-11.0)
[2023-06-17 12:18] LABS: PTT Partial Thromboplastin Tim 38 SECONDS (25.1-36.5)
[2023-06-17 12:19] LABS: Alanine Aminotransferase 25 IU/L (<35); Albumin 4.5 g/dL (3.5-5.0); Albumin Globulin Ratio 1.6 (1.0-2.8); Alkaline Phosphatase 93 U/L (38-126); Aspartate Aminotransferase 31 IU/L (14-36); BUN Creatinine Ratio 28.4 (6-22); Bilirubin Total 0.5 mg/dL (0.2-1.3); Blood Urea Nitrogen 23 mg/dL (7-17); Calcium 9.5 mg/dL (8.4-10.2); Carbon Dioxide 28 mmol/L (22-32); Chloride 108 mmol/L (98-107); Creatine Kinase 154 U/L (30-135); Estimated Glomerular Filt Rate > 60 mL/min (>60); Globulin 2.8 g/dL (1.7-4.1); Glucose 91 mg/dL (80-110); HEMOLYSIS < 15 (0-50); Potassium 4.3 mmol/L (3.4-5.1); Sodium 139 mmol/L (137-145); Total Protein 7.3 g/dL (6.3-8.2)
[2023-06-17 12:31] LABS: Troponin I < 0.012 ng/mL (0.01-0.034)
[2023-06-17] MEDS: SODIUM CHLORIDE 0.9% 500 ML 1000 ML IV (12:37)
[2023-06-17] MEDS: ASPIRIN EC 81 MG TABLET PO ×3 (12:37)
[2023-06-17] MEDS: NITROGLYCERIN OINT 1 INCH/GM OINT...G. TOP (13:03)
--- NOTE | 2023-06-17 13:54 | DI.MRI.S_ITS ---
PROCEDURE: MR HEAD/BRAIN WO CON INDICATIONS: TIA TECHNIQUE: Non-contrast axial T1 spin echo, axial T2 fast spin echo, sagittal and axial FLAIR, coronal T2 fast spin echo, axial gradient echo, axial diffusion and ADC through the brain. COMPARISON: [facility], CT, CT STROKE, 06/17/2023, 12:11. [facility], CT, CT ANGIO HEAD AND NECK, 06/17/2023, 12:11. FINDINGS: Image quality: Excellent. CSF spaces: Ventricles appear symmetric in size and shape. Basal cisterns are patent. No extra-axial fluid collections. Brain: No intracranial bleeds or mass effects. There is cerebral volume loss for age. There are periventricular and deep white matter chronic small vessel ischemic changes. Brainstem appears normal. Diffusion-weighted images show no acute infarct. No chronic ischemic insults. Normal intravascular flow voids are present. Skull and face: Calvarial bone marrow is normal in signal. Orbits are normal. Sinuses: Focal mucosal thickening can be seen within the right maxillary sinus. Sinuses and mastoids are otherwise relatively clear. IMPRESSION: No findings of acute or subacute infarction can be seen. Additional findings: Focal right maxillary sinus disease Dictated by: Mikie Fortune M.D. on 06/18/2023 at 13:43 Approved by: Mikie Fortune M.D. on 06/18/2023 at 13:44
--- NOTE | 2023-06-17 14:05 | PM.HP.1 ---
History of Present Illness History of Present Illness Date Patient Seen: 06/17/23 Time Patient Seen: 14:05 Chief complaint: chest pain, had TIA earlier today. High BP Narrative: 73-year-old female with history of hyperlipidemia, hypothyroidism, depression, SLE presenting with complaint of substernal chest pain in the setting of multiple episodes expressive aphasia this week. Seen in ED earlier this week for similar complaint during which she reported progressively worsening episodes where she states that she has a sudden onset of nausea and then approximately 30 seconds to 1 minute of word-finding issues. EKG and head CT at that time both unremarkable, was discharged home with diagnosis TIA on aspirin, planned to follow-up with her primary physician tomorrow for further evaluation. This has been occurring sporadically over the past 3 weeks but becoming more frequent. 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 While at home she took a nap and awoke with substernal chest pressure. No associated nausea, diaphporesis, radiation, SOB. No cardiac history, had stress test 1 year ago that was normal. Never had any slurred speech or facial droop or limb weakness or numbness through the course of the week. Per ED physician note today patient in no distress during initial evaluation. Initial labs notable for WBC 8.4, hemoglobin 13.6, sodium 139, potassium 4.3, chloride 108, creatinine 0.1, mildly elevated CK 154, troponin negative. EKG reassuring with sinus rhythm, no ST elevation/depression. CXR negative, CT head/brain without acute intracranial pathology or interval change from CT performed [address] angiography without significant arterial abnormality in the head or neck. Was noted to be moderately hypertensive and apparently did have 1 episode of expressive aphasia while there which resolved. She was given aspirin and nitroglycerin. Stroke protocol was not activated due to resolution of patient's symptoms while in ED. [facility] Medical History COVID-19 Facet arthropathy, lumbar 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 Polymyalgia rheumatica (03/02/03) Systemic lupus erythematosus (12/19/01) Spondylolisthesis at L4-L5 level Lumbosacral spondylosis with radiculopathy Sacral dysfunction Acquired hypothyroidism (05/16/16) Calculus of kidney (05/01/13) Hyperlipidemia (05/10/11) Depression (05/10/11) Menopausal syndrome (04/08/03) Surgical History Status post breast biopsy Family History Mother Family history of TIAs Social History household members: spouse Smoking Status: Never smoker alcohol intake: never Meds Home Medications and Allergies Home Medications Medication Instructions Recorded Confirmed Type celecoxib 200 mg capsule (Celebrex) 200 mg PO Q DAY #90 caps 04/16/23 06/17/23 Rx simvastatin 40 mg tablet 20 mg (1/2 x 40 mg) PO Q DAY #45 04/16/23 06/17/23 Rx tabs trazodone 100 mg tablet 100 mg PO HS #90 tabs 04/16/23 06/17/23 Rx Allergies Allergy/AdvReac Type Severity Reaction Status Date / Time No Known Drug Allergies Allergy Verified 05/18/23 09:33 Review of Systems Review of Systems ROS: Yes All systems reviewed with the patient and are negative except as otherwise documented Exam Vital Signs (past 8 hours): - 06/17/23 11:42 06/17/23 11:44 06/17/23 11:44 Pulse Rate 76 79 Respiratory Rate 11 L Blood Pressure 214/86 H Pulse Oximetry 100 Oxygen Delivery Method Room Air 06/17/23 11:46 06/17/23 11:46 06/17/23 11:48 Pulse Rate 86 80 Respiratory Rate 21 20 Blood Pressure 189/79 H 189/79 H Pulse Oximetry 100 100 Oxygen Delivery Method Room Air Room Air 06/17/23 12:00 06/17/23 12:30 06/17/23 12:46 Pulse Rate 76 78 Respiratory Rate 20 17 Blood Pressure 193/76 H Pulse Oximetry 99 99 Oxygen Delivery Method 06/17/23 12:46 06/17/23 13:00 06/17/23 13:01 Pulse Rate 82 80 Respiratory Rate 13 26 H Blood Pressure 164/71 H Pulse Oximetry 99 96 Oxygen Delivery Method Room Air 06/17/23 13:01 06/17/23 13:03 Pulse Rate 79 76 Respiratory Rate 18 Blood Pressure 164/71 H Pulse Oximetry 98 Oxygen Delivery Method Room Air Oxygen Delivery Method Room Air Narrative Exam Narrative: General: Pleasant, NAD HEENT: NC/AT, EOMI, moist membranes CV: RRR, normal S1-S2, no m/g/r Resp: CTAB, comfortable WOB Abd: Soft, NTND, +BS Ext: No edema Skin: No rash or lesions noted Neuro: A&O x3, clear and coherent speech, no facial droop, CN 2-12 grossly intact, moves all extremities, strength 5/5 in bilateral upper/lower extremities, no focal deficits noted Objective Labs 06/17/23 11:40 06/17/23 11:40 Labs: Laboratory Results - last 24 hr 06/17/23 11:40 WBC 8.4 RBC 4.47 Hgb 13.6 Hct 40.9 MCV 91.5 MCH 30.3 MCHC 33.1 RDW 14.1 Plt Count 263 Neut % (Auto) 53.5 Lymph % (Auto) 35.2 [place] % (Auto) 7.3 Eos % (Auto) 3.1 Baso % (Auto) 0.9 Neut # (Auto) 4500 Lymph # (Auto) 2900 [place] # (Auto) 600 Eos # (Auto) 300 Baso # (Auto) 100 PT 11.9 INR 1.0 APTT 38 H Sodium 139 Potassium 4.3 Chloride 108 H Carbon Dioxide 28 BUN 23 H Creatinine 0.81 Estimated GFR > 60 BUN/Creatinine Ratio 28.4 H Glucose 91 Calcium 9.5 Total Bilirubin 0.5 AST 31 ALT 25 Alkaline Phosphatase 93 Total Creatine Kinase 154 H Troponin I < 0.012 Total Protein 7.3 Albumin 4.5 Globulin 2.8 Albumin/Globulin Ratio 1.6 Assessment & Plan Assessment and plan (1) Atypical chest pain: Status: Acute (2) Brain TIA: Status: Acute (3) Hyperlipidemia: Qualifiers: Hyperlipidemia type: mixed hyperlipidemia Qualified Code(s): E78.2 - Mixed hyperlipidemia Status: Chronic (4) Acquired hypothyroidism: Status: Chronic Assessment & Plan narrative: 73-year-old female with history of hyperlipidemia, hypothyroidism, depression, SLE admitted for TIA workup. #TIA #Expressive aphasia Multiple episodes expressive aphasia this week. Multiple CT head over past week and CT angio today without any significant abnormality that would explain symptoms. NIHSS score 0 on admission. -aspirin monotherapy for ABCD2 score 3 -MRI brain to evaluate for evidence of stroke/ischemia #Atypical chest pain New onset substernal chest pain today. No cardiac history of note, negative stress test 1 year ago. No TTE on record. -telemetry -TTE pending #Hyperlipidemia -restart home atorvastatin Dispo: Telemetry bed Diet: Heart healthy DVT ppx: Aspirin Code: FULL PCP: [facility] MDM: Time Spent With Patient Time with patient: less than 30 minutes Scores ABCD2 Age >= 60 years: yes Initial BP. Either SBP >= 140 or DBP >= 90.: yes Clinical features of the TIA: speech disturbance without weakness Duration of symptoms: < 10 minutes History of diabetes: no ABCD2 Score: 3 IH PROFEE Charge Codes Initial inpatient/observation care: [id number]
[2023-06-17 16:17] LABS: MRSA (Nasal) PCR NOT DETECTED (Not Detect)
--- NOTE | 2023-06-17 16:52 | DI.ECHO.S_ITS ---
[facility] : : [address] : : [place] : : [address] : : Phone: [phone] Echocardiogram Report + + :Name: MYA FLETCHER Study Date: 06/18/2023 Height: 64 in : :[facility] ReadingLocation: Weight: 171 lb : : Gender: Female BSA: 1.8 m2 : :: 1950 Age: 73 yrs BP: 146/65 mmHg: :Reason For Study: TIA : :Ordering Physician: NANY, : :FRANCISCO Lyles Performed By: Syvlia Hale : :Referring: FRANCISCO AYON : + + Interpretation Summary Normal left ventricle size with ejection fraction 60-65%. Mild aortic valve sclerosis. Mld aortic regurgitation. Procedure: A two-dimensional transthoracic echocardiogram with color flow and Doppler was performed. The study quality was technically adequate. There is no prior echocardiogram noted for this patient. The patient was in sinus rhythm with heart rates between 69-77 bpm during the exam. Left Ventricle: The left ventricle is normal in size and wall thickness. The ejection fraction is estimated to be 60-65%. There are no focal wall motion abnormalities. Right Ventricle: The right ventricle is normal in size and function. Atria: The left atrial size is normal. Right atrial size is normal. There is no Doppler evidence for an interatrial shunt. Mitral Valve: The mitral valve is normal in structure and function. There is trace mitral regurgitation. Aortic Valve: The aortic valve is trileaflet. The aortic valve opens well. There is mild aortic valve sclerosis. There is no aortic valve stenosis. There is mild aortic regurgitation. Tricuspid Valve: The tricuspid valve is normal in structure and function. There is trace tricuspid regurgitation. The right ventricular systolic pressure is estimated to be at least 28 mmHg based on an estimated right atrial pressure of 3 mm Hg. Pulmonic Valve: The pulmonic valve leaflets are thin and pliable; valve motion is normal. There is trace pulmonic regurgitation. Great Vessels: The aortic root is normal size. The dimensions of the ascending aorta are normal. The IVC is of normal diameter and collapses greater than 50% with a sniff. This suggests a low right atrial pressure of 3 mm Hg. Pericardium/ Pleura There is no pericardial effusion. There is no pleural effusion. MMode/2D Measurements & Calculations LVIDd: 5.1 cm LVOT diam: 2.0 cm LVIDs: 3.2 cm Ao root diam: 2.9 cm FS: 36.6 % asc Aorta Diam: 2.9 cm EPSS: 0.43 cm IVSd: 0.73 cm LVPWd: 0.66 cm LV garcia. diameter/BSA (cm/m^2): 2.8 LV sys. diameter/BSA (cm/m^2): 1.8 LA A2 area: 19.2 cm2 RA long axis: 4.2 cm LA A4 area: 11.7 cm2 RA area: 11.7 cm2 LA length (vol): 5.1 cm RA vol: 27.8 ml LA vol: 37.6 ml RA : 15.2 ml/m2 LA vol index: 20.6 ml/m2 IVC diam: 1.7 cm RVD1 (basal): 3.1 cm RVD2 (mid): 2.2 cm TAPSE: 2.5 cm Doppler Measurements & Calculations Ao V2 max: 174.0 cm/sec LVOT Max Wei: 87.0 cm/sec Ao V2 mean: 119.5 cm/sec LV V1 max P.0 mmHg Ao max P.1 mmHg LV V1 VTI: 21.9 cm Ao mean P.5 mmHg RALEIGH(I,D): 1.7 cm2 Ao V2 VTI: 40.0 cm RALEIGH(V,D): 1.5 cm2 sev ratio: 0.55 RALEIGH indexed to BSA (cm^2/m^2): 0.92 AI P1/2t: 461.5 msec AI dec slope: 276.1 cm/sec2 MV E max wei: 76.9 cm/sec TR max wei: 252.2 cm/sec MV A max wei: 106.1 cm/sec TR max P.5 mmHg MV E/A: 0.72 PA V2 max: 87.0 cm/sec Med Peak E' Wei: 7.2 cm/sec PA V2 mean: 60.5 cm/sec E/E' med: 10.6 PA mean P.6 mmHg Lat Peak E' Wei: 7.1 cm/sec PA pr(Accel): 34.5 mmHg E/E' lat: 10.8 E/e' average: 10.7 MV dec time: 0.20 sec SV(LVOT): 67.1 ml Electronically signed by: Ronit Caceres on Reading Physician:06/18/2023 10:08 AM
[2023-06-17] MEDS: TRAZODONE 50 MG TABLET 100 MG PO (20:03)
[2023-06-17] MEDS: ATORVASTATIN 20 MG TABLET 10 MG PO (20:03)
[2023-06-18] VITALS (7 sets, daily range): BP systolic 146–162; BP diastolic 64–68; PULSE 73–79; RESP 20; TEMP 36.6–36.8; O2SAT 94–97
[2023-06-18 04:53] LABS: Add Manual Diff / Slide Review NO; Basophils Absolute Auto 100 /uL (0-100); Basophils Percent Auto 1.2 % (0-2); Eosinophils Absolute Auto 400 /uL (0-450); Hematocrit 37.3 % (36-46); Hemoglobin 12.5 g/dL (12.0-16.0); Lymphocytes Absolute Auto 2300 /uL (1100-4500); Mean Corpuscular HGB Conc 33.4 % (30-36); Mean Corpuscular Hemoglobin 30.4 PG (26-34); Monocytes Absolute Auto 600 /uL (0-900); Monocytes Percent Auto 8.9 % (3-14); Neutrophils Absolute Auto 3500 /uL (1500-7000); Neutrophils Percent Auto 50.9 % (50-75); Platelet Count 225 X10^3/uL (150-400); Red Cell Distribution Width 14.1 % (11.6-14.8); White Blood Cell Count 6.9 X10^3/uL (4.5-11.0)
[2023-06-18 05:15] LABS: BUN Creatinine Ratio 26.6 (6-22); Blood Urea Nitrogen 21 mg/dL (7-17); Calcium 8.6 mg/dL (8.4-10.2); Carbon Dioxide 28 mmol/L (22-32); Chloride 109 mmol/L (98-107); Estimated Glomerular Filt Rate > 60 mL/min (>60); Glucose 92 mg/dL (80-110); HEMOLYSIS < 15 (0-50); Potassium 4.2 mmol/L (3.4-5.1); Sodium 138 mmol/L (137-145)
[2023-06-18] MEDS: CLOPIDOGREL 75 MG TABLET PO (08:26)
[2023-06-18] MEDS: ASPIRIN EC 325 MG TABLET PO (08:26)
[2023-06-18] MEDS: AMLODIPINE 5 MG TABLET PO (08:26)
--- NOTE | 2023-06-18 08:35 | P.PN_ITS ---
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 It lasted such a brief time that nursing staff was not able to get to her before it resolved completely. Vital signs including blood pressure were apparently quite stable immediately after this event. Had an echo earlier this morning, no results as yet available MRI will be performed after spouse arrives with device to turn off her back stimulator Exam Vital Signs (past 8 hours): - 06/18/23 06:00 06/18/23 08:00 Temperature 97.9 F 98.3 F Pulse Rate 79 Respiratory Rate 20 Blood Pressure 162/68 H 146/65 H Pulse Oximetry 96 Oxygen Flow Rate 0 Oxygen Delivery Method Room Air Oxygen Flow Rate 0 Objective Labs 06/18/23 04:31 06/18/23 04:31 Labs: Laboratory Results - last 24 hr 06/17/23 06/17/23 06/18/23 11:40 14:55 04:31 WBC 8.4 6.9 RBC 4.47 4.10 Hgb 13.6 12.5 Hct 40.9 37.3 MCV 91.5 91.0 MCH 30.3 30.4 MCHC 33.1 33.4 RDW 14.1 14.1 Plt Count 263 225 Neut % (Auto) 53.5 50.9 Lymph % (Auto) 35.2 33.0 [place] % (Auto) 7.3 8.9 Eos % (Auto) 3.1 6.0 H Baso % (Auto) 0.9 1.2 Neut # (Auto) 4500 3500 Lymph # (Auto) 2900 2300 [place] # (Auto) 600 600 Eos # (Auto) 300 400 Baso # (Auto) 100 100 PT 11.9 INR 1.0 APTT 38 H Sodium 139 138 Potassium 4.3 4.2 Chloride 108 H 109 H Carbon Dioxide 28 28 BUN 23 H 21 H Creatinine 0.81 0.79 Estimated GFR > 60 > 60 BUN/Creatinine Ratio 28.4 H 26.6 H Glucose 91 92 Calcium 9.5 8.6 Total Bilirubin 0.5 AST 31 ALT 25 Alkaline Phosphatase 93 Total Creatine Kinase 154 H Troponin I < 0.012 Total Protein 7.3 Albumin 4.5 Globulin 2.8 Albumin/Globulin Ratio 1.6 Nasal Screen MRSA (PCR) Not detected [facility] Medical History COVID-19 Facet arthropathy, lumbar 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 Polymyalgia rheumatica (03/02/03) Systemic lupus erythematosus (12/19/01) Spondylolisthesis at L4-L5 level Lumbosacral spondylosis with radiculopathy Sacral dysfunction Acquired hypothyroidism (05/16/16) Calculus of kidney (05/01/13) Hyperlipidemia (05/10/11) Depression (05/10/11) Menopausal syndrome (04/08/03) Surgical History Status post breast biopsy Family History Mother Family history of TIAs Social History household members: spouse Smoking Status: Never smoker alcohol intake: never Assessment & Plan Assessment & Plan narrative: 1. Neurologic events-this does not seem like a vascular neurologic set of symptoms to me given this super brief duration. She is very clear that all these episodes with her speech have been 1 minute or less in duration which really does not fit well at all with a vascular type TIA. However I did add Plavix to the regimen of an aspirin looking for dual antiplatelet therapy least in the short term On the differential therefore would be related to hypertension which she has documented as quite severely high in the 230/120 range (although this morning apparently that was not the case with her episode), seizure disorder, medication related, and other causes including possible psychogenic (which seems unlikely to me) Will proceed with echocardiography and MRI of course. If these are normal, without significant finding than likely patient should be discharged and will need a neurologic evaluation as an outpatient (since that has not available here, and we have ruled out serious etiologies that would require continued hospitalization) 2. Hypertension-I do believe patient should be on antihypertensive therapy in effort to reduce her risk and reduce her ability to generate the super high numbers. Still unclear whether the hypertension is a cause of anything or rather the result of some other process. I have started her on 5 mg a day of amlodipine 3. Chest pain-patient with normal myocardial perfusion scan almost exactly a year ago. Unless there some notable finding on her echocardiogram I am going to discount the chest pain given the negative troponins and the relatively recent negative perfusion scan etcetera. 4. Back pain-ongoing issue and problem. Continue patient's usual meds and treatment Quality VTE Deep Vein Thrombosis/Pulmonary Embolism Present on Admission: No IH PROFEE Charge codes Subsequent inpatient/observation care: [id number]
--- NOTE | 2023-06-18 11:43 | CM.DANOTE ---
Patient is a 73 yo female who was admitted on 06/17/23 OBS Status for Chest Pain/TIA vs CVA r/o. Pt has [facility] and [employer] for insurance and her PCP is Dr. Josue Granger. EMR was reviewed. Per MD, pt with multiple ED visits for ongoing TIA type symptoms over the past few weeks which have resolved and to have Echo and MRI to r/o cardiac and CVA but likely may be more neurological/vascular. Per RN, pt very independent in room and no PT/OT needs at this time. 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 Pt still drives and does not use DME for ambulation and states spouse is her DPOA. Pt does not anticipate any discharge planning needs at d/c and preference is home later today if medically stable and imaging normal. Pt states spouse can transport. Pt denies any hx of HH or SNF. Plan: SW to follow for Echo and MRI results to confirm safe d/c home with spouse and outpt f/u and any further identified discharge planning needs. ANGEL Bronson Discharge Planning/Care Management CM Discharge Assessment Start: 06/18/23 11:42 Freq: Status: Active Protocol: Document 06/18/23 11:42 BF (Rec: 06/18/23 11:43 BF [id number]) Discharge Planning Assessment Assigned Crozer ANGEL Wolfe DPOA/Assigned Designee Name spouse Juan Manuel Advance Directives? No Advance Directives on File No History Provided By Patient,Medical Record Has Patient been admitted in last 30 No days? Prior Living Arrangements House Household Members spouse Type of transporation used prior to Drives own vehicle admit Independent with ADL's Yes Is patient alert and oriented? Yes Caregiver for Another No Barriers to Discharge No Discharge Plan Home Transportation Arrangement Likely spouse to transport at d/c Referrals Initiated None needed Additional Comment Pending MRI results Whiteboard Updated in Patient Room with Yes name and ext. # of Crozer Review Status In Process Please Provide Date Initial DC 06/18/23 Assessment Was Performed Next Review Type Continued Stay Review
--- NOTE | 2023-06-18 15:35 | P.DS_ITS ---
History of Present Illness History of Present Illness Chief complaint: chest pain, had TIA earlier today. High BP Narrative: 73-year-old female with history of hyperlipidemia, hypothyroidism, depression, SLE presenting with complaint of substernal chest pain in the setting of multiple episodes expressive aphasia this week. Seen in ED earlier this week for similar complaint during which she reported progressively worsening episodes where she states that she has a sudden onset of nausea and then approximately 30 seconds to 1 minute of word-finding issues. EKG and head CT at that time both unremarkable, was discharged home with diagnosis TIA on aspirin, planned to follow-up with her primary physician tomorrow for further evaluation. This has been occurring sporadically over the past 3 weeks but becoming more frequent. 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 While at home she took a nap and awoke with substernal chest pressure. No associated nausea, diaphporesis, radiation, SOB. No cardiac history, had stress test 1 year ago that was normal. Never had any slurred speech or facial droop or limb weakness or numbness through the course of the week. Per ED physician note today patient in no distress during initial evaluation. Initial labs notable for WBC 8.4, hemoglobin 13.6, sodium 139, potassium 4.3, chloride 108, creatinine 0.1, mildly elevated CK 154, troponin negative. EKG reassuring with sinus rhythm, no ST elevation/depression. CXR negative, CT head/brain without acute intracranial pathology or interval change from CT performed [address] angiography without significant arterial abnormality in the head or neck. Was noted to be moderately hypertensive and apparently did have 1 episode of expressive aphasia while there which resolved. She was given aspirin and nitroglycerin. Stroke protocol was not activated due to resolution of patient's symptoms while in ED. {from Dr. Gallegos's H&P 06/17/23} Discharge Providers Provider Date of admission: 06/17/23 13:55 Discharge Date: 06/18/23 Primary care physician: Josue Granger MD Discharge provider: Josue Granger MD Summary Hospital Course Discharge Diagnosis: 1. Aphasia, probably expressive 2. Hypertension 3. Hyperlipidemia 4. Chest pain, atypical 5. Hypothyroidism on replacement Hospital Course: Patient presented as above with episodes of word-finding difficulty she describes as an aphasia. Also could not really make her mouth move like she wanted to. These episodes were all uniformly very brief lasting less than 60 seconds. Workup in the emergency department including CT angiography of the head and neck as well as head CT were unremarkable. Subsequent workup including echocardiography and MRI of the brain equally unremarkable for any acute subacute or chronic issue. No evidence of infarction. Patient experienced 1 of these episodes while hospitalized but it was such a brief duration the nursing staff was not able to evaluate patient before resolve completely Patient also demonstrated some significant hypertension started on antihypertensive therapy during this hospitalization. Dose needed to be escalated prior to discharge Exam Vital Signs (past 8 hours): - 06/18/23 08:00 06/18/23 08:53 06/18/23 08:53 Temperature 98.3 F Pulse Rate 79 Blood Pressure 146/65 H 154/64 H Pulse Oximetry 94 06/18/23 12:36 06/18/23 12:36 Temperature Pulse Rate Blood Pressure 158/66 H Pulse Oximetry 96 Oxygen Delivery Method Room Air Oxygen Flow Rate 0 Objective Labs 06/18/23 04:31 06/18/23 04:31 Labs: Laboratory Results - last 24 hr 06/17/23 06/18/23 14:55 04:31 WBC 6.9 RBC 4.10 Hgb 12.5 Hct 37.3 MCV 91.0 MCH 30.4 MCHC 33.4 RDW 14.1 Plt Count 225 Neut % (Auto) 50.9 Lymph % (Auto) 33.0 [place] % (Auto) 8.9 Eos % (Auto) 6.0 H Baso % (Auto) 1.2 Neut # (Auto) 3500 Lymph # (Auto) 2300 [place] # (Auto) 600 Eos # (Auto) 400 Baso # (Auto) 100 Sodium 138 Potassium 4.2 Chloride 109 H Carbon Dioxide 28 BUN 21 H Creatinine 0.79 Estimated GFR > 60 BUN/Creatinine Ratio 26.6 H Glucose 92 Calcium 8.6 Nasal Screen MRSA (PCR) Not detected [facility] Medical History COVID-19 Facet arthropathy, lumbar 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 Polymyalgia rheumatica (03/02/03) Systemic lupus erythematosus (12/19/01) Spondylolisthesis at L4-L5 level Lumbosacral spondylosis with radiculopathy Sacral dysfunction Acquired hypothyroidism (05/16/16) Calculus of kidney (05/01/13) Hyperlipidemia (05/10/11) Depression (05/10/11) Menopausal syndrome (04/08/03) Surgical History Status post breast biopsy Family History Mother Family history of TIAs Social History household members: spouse Smoking Status: Never smoker alcohol intake: never Discharge Assessment & Plan Assessment and Plan Plan of Treatment: Patient seems unlikely to be having a vascular neurologic series of events given lack of findings and the super brief duration of her symptoms. Alternate explanations include hypertensive urgency verses seizure verses of some other metabolic etiology that is yet to be identified Given lack of findings on her workup in the hospital was felt as though it is safe for her to be discharged. She will need to be seen as an outpatient by Neurology sooner rather than later The meantime will control blood pressure with the amlodipine which was started during her hospitalization and plan for close follow-up as an outpatient In addition given the symptoms despite my feeling this is not likely to be vascular neurologic event I think she would benefit in the short term anyway from dual antiplatelet therapy and so both aspirin and clopidogrel have been prescribed Discharge Plan Discharge Plan Patient Disposition: Home Discharge orders & Medications Prescriptions: New atorvastatin 20 mg Tablet 20 mg PO BEDTIME Qty: 90 3RF clopidogrel 75 mg Tablet 75 mg PO DAILY Qty: 90 0RF aspirin 325 mg Tablet,Delayed Release (Dr/Ec) 325 mg PO DAILY Qty: 150 0RF amlodipine 10 mg tablet 10 mg PO DAILY Qty: 90 3RF Continued trazodone 100 mg tablet 100 mg PO HS Qty: 90 3RF celecoxib [Celebrex] 200 mg capsule 200 mg PO Q DAY Qty: 90 3RF Hold Instructions: Home Medication placed on hold at Doctor's office Discontinued simvastatin 40 mg tablet 20 mg PO Q DAY Qty: 45 3RF Follow up/Referrals: Josue Granger MD [Primary Care Provider] - 2 Weeks Discharge Health Status Multidrug resistant organism: No MDRO Diet/Activity/Treatments Diet: Diet as Tolerated and Low-sodium Visit Report/Discharge Packet Stand Alone Forms: Patient Portal/API, Stroke Signs & Symptoms Discharge Data Primary Care Provider: Josue Granger Attending Provider: Josue Granger Admit Date/Time: 06/17/23 13:55 Quality VTE Deep Vein Thrombosis/Pulmonary Embolism Present on Admission: No IH PROFEE Charge Codes Discharge inpatient/observation: [id number]
== END 2023-06-18 16:01 | disposition home or self-care (01) ==
LOC: ED 13:42 → AC 13:56 → ICU 14:42
PROVIDERS: Admitting Provider Family Medicine; Emergency Provider Emergency Medicine; Family Provider Internal Medicine; PCP Internal Medicine; Referring Provider Emergency Medicine; Visit Provider Internal Medicine
DX: R07.89 Other chest pain (principal); R47.01 Aphasia; R29.700 NIHSS score 0; I10 Essential (primary) hypertension; E78.5 Hyperlipidemia, unspecified; E03.9 Hypothyroidism, unspecified
CPT/HCPCS: 36415; 70450; 70496; 70498; 70551; 71045; 80048; 80053; 82550; 84484; 85025; 85610; 85730; 87797; 93005; 93306; 99285; G0378; Q9967

== ENCOUNTER 2023-06-19 10:20 | Emergency (ER) | payer MEDICARE, SELFPAY ==
[2023-06-17 14:10] VITALS: BMI 29.5
[2023-06-19 10:27] VITALS: BP 144/68; PULSE 86; RESP 16; TEMP 36.9; O2SAT 98
--- NOTE | 2023-06-19 10:31 | PC.NURSE ---
During triage, pt checked her blood pressure with her cuff. states to her that she is better and wants to go home and buy another blood pressure cuff. I encouraged the patient to stay to be evaluated by the ER doctor. explained to pt about having chest pain, possible heart attack , htn. pt states she understood and still is going home.
== END 2023-06-19 10:35 | disposition left against medical advice (07) ==
PROVIDERS: Emergency Provider Emergency Medicine; Family Provider Internal Medicine; PCP Internal Medicine
DX: R07.9 Chest pain, unspecified (principal)
CPT/HCPCS: 99281

== ENCOUNTER → 2023-08-31 10:04 | Outpatient (CLI) | payer MEDICARE, SELFPAY ==
[2023-06-17 14:10] VITALS: BMI 29.5
[2023-08-31 11:49] LABS: Alanine Aminotransferase 23 IU/L (<35); Albumin Globulin Ratio 1.4 (1.0-2.8); Alkaline Phosphatase 116 U/L (38-126); Aspartate Aminotransferase 32 IU/L (14-36); BUN Creatinine Ratio 16.8 (6-22); Bilirubin Total 0.6 mg/dL (0.2-1.3); Blood Urea Nitrogen 17 mg/dL (7-17); Calcium 8.7 mg/dL (8.4-10.2); Carbon Dioxide 30 mmol/L (22-32); Chloride 108 mmol/L (98-107); Cholesterol 159 mg/dL (140-199); Estimated Glomerular Filt Rate 60 mL/min (>60); Globulin 2.9 g/dL (1.7-4.1); Glucose 93 mg/dL (80-110); HDL Cholesterol 65 mg/dL (40-60); HEMOLYSIS < 15 (0-50); LDL Cholesterol Calculated 80 mg/dL (<100); Potassium 4.5 mmol/L (3.4-5.1); Sodium 140 mmol/L (137-145); Total Protein 6.9 g/dL (6.3-8.2); Triglycerides 69 mg/dL (35-150)
[2023-08-31 12:09] LABS: Free T4, Direct Thyroxine 0.98 ng/dL (0.78-2.19)
[2023-08-31 12:23] LABS: Thyroid Stimulating Hormone 4.38 uIU/mL (0.47-4.68)
== END ==
LOC: LAB 10:05
PROVIDERS: Family Provider Internal Medicine; PCP Internal Medicine; Referring Provider Internal Medicine; Visit Provider Internal Medicine
DX: E78.5 Hyperlipidemia, unspecified (principal); E03.9 Hypothyroidism, unspecified
CPT/HCPCS: 36415; 80053; 80061; 84439; 84443

== ENCOUNTER → 2024-02-28 10:23 | Outpatient (CLI) | payer MEDICARE, SELFPAY ==
[2023-06-17 14:10] VITALS: BMI 29.5
[2024-02-28 11:24] LABS: Alanine Aminotransferase 52 IU/L (<35); Albumin Globulin Ratio 1.3 (1.0-2.8); Alkaline Phosphatase 194 U/L (38-126); Aspartate Aminotransferase 44 IU/L (14-36); Bilirubin Total 0.4 mg/dL (0.2-1.3); Blood Urea Nitrogen 22 mg/dL (7-17); Calcium 9.1 mg/dL (8.4-10.2); Carbon Dioxide 30 mmol/L (22-32); Chloride 104 mmol/L (98-107); Cholesterol 185 mg/dL (140-199); Estimated Glomerular Filt Rate 53 mL/min (>60); Glucose 95 mg/dL (80-110); HDL Cholesterol 64 mg/dL (40-60); HEMOLYSIS < 15 (0-50); LDL Cholesterol Calculated 103 mg/dL (<100); Potassium 4.4 mmol/L (3.4-5.1); Sodium 137 mmol/L (137-145); Triglycerides 92 mg/dL (35-150)
[2024-02-28 11:46] LABS: Free T4, Direct Thyroxine 0.83 ng/dL (0.78-2.19)
[2024-02-28 12:00] LABS: Thyroid Stimulating Hormone 9.35 uIU/mL (0.47-4.68)
== END ==
PROVIDERS: Family Provider Internal Medicine; PCP Internal Medicine; Referring Provider Internal Medicine; Visit Provider Internal Medicine
DX: I10 Essential (primary) hypertension (principal); E03.9 Hypothyroidism, unspecified; E78.5 Hyperlipidemia, unspecified
CPT/HCPCS: 36415; 80053; 80061; 84439; 84443

== ENCOUNTER → 2024-03-03 11:56 | Outpatient (CLI) | payer MEDICARE, SELFPAY ==
[2023-06-17 14:10] VITALS: BMI 29.5
[2024-03-03 13:49] LABS: Appearance Urine UA SL CLOUDY; Bilirubin Urine UA NEGATIVE (NEGATIVE); Color Urine UA YELLOW; Glucose Urine UA NEGATIVE (Negative); Ketones Urine UA TRACE (NEGATIVE); Leukocyte Esterase Urine UA TRACE (NEGATIVE); Nitrite Urine UA POSITIVE (Negative); Occult Blood Urine UA 3+ (Negative); Protein Urine UA NEGATIVE (Negative); Specific Gravity Urine UA >=1.030 (1.000-1.035); Urobilinogen Urine UA 0.2 E.U./dL (0.2)
[2024-03-03 14:05] LABS: Bacteria Urine Many (>30); Culture Indicated Urine Specimen Cultured; RBC Urine 5-10/HPF (0-5/HPF); Squamous Epithelial Cell Urine None Seen (0-5/HPF); Urine Volume 10mL (spun); WBC Urine 1-5/HPF (0-5/HPF)
== END ==
LOC: LAB 11:57
PROVIDERS: Family Provider Internal Medicine; PCP Internal Medicine; Referring Provider Internal Medicine; Visit Provider Internal Medicine
DX: N39.0 Urinary tract infection, site not specified (principal)
CPT/HCPCS: 81001; 87077; 87086

== ENCOUNTER → 2024-03-12 11:51 | Outpatient (CLI) | payer MEDICARE, SELFPAY ==
[2023-06-17 14:10] VITALS: BMI 29.5
--- NOTE | 2024-03-12 11:54 | DI.US.S_ITS ---
PROCEDURE: US ABDOMEN LIMITED INDICATIONS: abnl lfts TECHNIQUE: Real-time focused scanning was performed of the abdomen, with image documentation. COMPARISON: None. FINDINGS: The liver demonstrates normal size. The liver demonstrates generalized mildly increased echogenicity. This decreases ultrasound sensitivity for detection of hepatic masses. No findings of gallstones or sludge are seen. The gallbladder wall is not thickened, measuring 3 mm or less. No specific pericholecystic fluid is seen. The sonographic Rivera sign is negative. There is no biliary dilatation, the common bile duct measures 5 mm. No significant pancreatic abnormality is seen on these images. IMPRESSION: These imaging findings are most compatible with mild fatty liver infiltration. Dictated by: Mikie Fortune M.D. on 03/12/2024 at 12:56 Approved by: Mikie Fortune M.D. on 03/12/2024 at 12:57
== END ==
LOC: US 11:52
PROVIDERS: Family Provider Internal Medicine; PCP Internal Medicine; Referring Provider Internal Medicine; Visit Provider Internal Medicine
DX: R74.01 Elevation of levels of liver transaminase levels (principal); E03.9 Hypothyroidism, unspecified; I10 Essential (primary) hypertension
CPT/HCPCS: 76705

== ENCOUNTER → 2024-03-17 15:03 | Outpatient (CLI) | payer MEDICARE, SELFPAY ==
[2023-06-17 14:10] VITALS: BMI 29.5
== END ==
PROVIDERS: Family Provider Internal Medicine; PCP Internal Medicine; Referring Provider Internal Medicine; Visit Provider Internal Medicine
DX: N39.0 Urinary tract infection, site not specified (principal)
CPT/HCPCS: 87086

== ENCOUNTER → 2024-06-27 10:22 | Outpatient (CLI) | payer MEDICARE, SELFPAY ==
[2023-06-17 14:10] VITALS: BMI 29.5
--- NOTE | 2024-06-27 10:38 | EKG_ITS ---
[facility] [address] [place] [id number] Test Date: 2024-06-27 Pat Name: Casandra aSleh Department: [facility] Room: Gender: Female Habilitation Worker: CUBA : 1950 Requested By: Order Number: [id number] Reading MD: Bismark Nino Measurements Intervals Edgar Rate: 83 P: 61 LA: 158 QRS: -12 QRSD: 80 T: 32 QT: 382 QTc: 448 Interpretive Statements Normal sinus rhythm Electronically Signed On 06-27-2024 16:04:00 PDT by Bismark Nino
[2024-06-27 12:29] LABS: Mean Corpuscular HGB Conc 33.4 % (30-36); Mean Corpuscular Hemoglobin 30.2 PG (26-34); Mean Corpuscular Volume 90.4 fL (80-100); Platelet Count 280 X10^3/uL (150-400); Red Blood Cell Count 4.31 X10^6/uL (4.0-5.2); Red Cell Distribution Width 14.5 % (11.6-14.8); White Blood Cell Count 5.9 X10^3/uL (4.5-11.0)
[2024-06-27 12:55] LABS: Alanine Aminotransferase 30 IU/L (<35); Albumin 4.1 g/dL (3.5-5.0); Albumin Globulin Ratio 1.8 (1.0-2.8); Alkaline Phosphatase 130 U/L (38-126); Aspartate Aminotransferase 32 IU/L (14-36); BUN Creatinine Ratio 19.6 (6-22); Bilirubin Total 0.5 mg/dL (0.2-1.3); Blood Urea Nitrogen 18 mg/dL (7-17); Calcium 9.4 mg/dL (8.4-10.2); Carbon Dioxide 29 mmol/L (22-32); Chloride 105 mmol/L (98-107); Estimated Glomerular Filt Rate > 60 mL/min (>60); Globulin 2.3 g/dL (1.7-4.1); Glucose 79 mg/dL (70-99); HEMOLYSIS < 15 (0-50); Potassium 4.4 mmol/L (3.4-5.1); Sodium 142 mmol/L (137-145); Total Protein 6.4 g/dL (6.3-8.2)
== END ==
PROVIDERS: Family Provider Internal Medicine; PCP Internal Medicine; Referring Provider Nurse Practitioner Family; Visit Provider Nurse Practitioner Family
DX: Z01.810 Encounter for preprocedural cardiovascular examination (principal)
CPT/HCPCS: 36415; 80053; 85027; 93005

== ENCOUNTER → 2024-07-25 10:55 | Outpatient (CLI) | payer MEDICARE, SELFPAY ==
[2023-06-17 14:10] VITALS: BMI 29.5
--- NOTE | 2024-07-25 10:57 | DI.RAD.S_ITS ---
PROCEDURE: XR LUMBAR SPINE MIN 4V INDICATIONS: BACK PAIN TECHNIQUE: 5 views of the lumbar spine were acquired, including bilateral oblique views. COMPARISON: Outside Film, CT, CT ABDOMEN PELVIS WITHOUT CONTRAST, 05/08/2024, 20:58. [facility], CR, XR LUMBAR SPINE MIN 4V, 10/14/2019, 8:51. [facility], CR, XR LUMBAR SPINE MIN 4V, 11/21/2017, 8:40. FINDINGS: Diffuse osseous demineralization. Five non rib-bearing lumbar vertebrae. Grade 1 anterolisthesis of L4 on L5 with otherwise preservation of the lumbar lordosis. Bilateral, nondisplaced L4 pars interarticularis defects (based on correlation with the 05/08/2024 CT abdomen pelvis examination). Mild intervertebral disc height loss at L4-L5. The other intervertebral disc heights are preserved. Mild multilevel facet arthropathy. No significant hypertrophy of the spinous processes. Right-sided nerve stimulator device overlying the right sciatic notch, with the distal lead terminating at the level of the left coccygeal arches. Right lower quadrant surgical clips. IMPRESSION: Grade 1 anterolisthesis of L4 on L5 secondary to nondisplaced L4 pars interarticularis defects. Dictated by: Tyler Finch M.D. on 07/25/2024 at 11:31 Approved by: Tyler Finch M.D. on 07/25/2024 at 11:37
== END ==
PROVIDERS: Family Provider Internal Medicine; PCP Internal Medicine; Referring Provider Physical Medicine & Rehabilitation; Visit Provider Physical Medicine & Rehabilitation
DX: M48.00 Spinal stenosis, site unspecified (principal); M47.27 Other spondylosis with radiculopathy, lumbosacral region; M43.16 Spondylolisthesis, lumbar region
CPT/HCPCS: 72110

== ENCOUNTER → 2024-12-29 09:27 | Outpatient (CLI) | payer MEDICARE, SELFPAY ==
[2023-06-17 14:10] VITALS: BMI 29.5
--- NOTE | 2024-12-29 09:28 | DI.US.S_ITS ---
MM diagnostic mammo BI, US breast RT limited: 12/29/2024 BI-RADS: 1
== END ==
LOC: MAMMO 09:28
PROVIDERS: PCP Internal Medicine; Referring Provider Internal Medicine; Visit Provider Internal Medicine
DX: N64.4 Mastodynia (principal)
CPT/HCPCS: 76642; 77066; G0279

== ENCOUNTER 2025-01-20 10:06 | Outpatient (CLI) | payer MEDICARE, SELFPAY ==
[2023-06-17 14:10] VITALS: BMI 29.5
[2025-01-20 11:25] VITALS: BP 120/58; PULSE 72; RESP 16; TEMP 37.1; O2SAT 96
[2025-01-20 11:52] VITALS: BP 113/58; PULSE 66; RESP 20; O2SAT 98
[2025-01-20] MEDS: LIDOCAINE 2% INJ MDV 20ML 5 ML INJ (11:58)
[2025-01-20 12:00] VITALS: BP 117/58; PULSE 68; RESP 16; O2SAT 98
[2025-01-20 12:05] VITALS: BP 126/69; PULSE 71; RESP 16; O2SAT 100
--- NOTE | 2025-01-20 12:06 | P.PCN_ITS ---
Date/Time/Diagnoses Date of procedure: 01/20/25 Time of procedure: 12:07 Pre-procedure diagnosis: Lumbar Facet Arthropathy Post-procedure diagnosis: same Procedure Notes Procedure: 1. Right L4, L5 and S1 MB BLOCKS SA Indications: Casandra is referred by Dr. Granger for treatment of Right Axial LBP. Physician: Deni Ramos Total Fluoroscopy time (seconds): 7 Total sedation minutes: 0 Complications: none Procedure in detail & Post-procedure care: DESCRIPTION OF PROCEDURE Fluoroscopically guided, contrast-controlled right L4, L5 and S1 medial branch blocks with 0.5cc of 2% Lidocaine. Following review of allergy and review of potential side effects and complications, including, but not necessarily limited to, infection, allergic reaction, local tissue breakdown, nerve injury, paralysis, stroke and possible , the patient indicated that the patient understood and agreed to proceed. An informed consent document was signed by the patient, witnessed by a nurse, and placed in the patient's chart. After review of previous anaesthesic history and IV conscious sedation the patient was deemed safe to proceed with today?s procedure with IV conscious sedation as ASA class II designation. Safety time-out was performed to confirm patient ID, procedure to be performed and site of procedure. IV sedation was not administered by the RN after DO order, titrated to patient comfort during the course of the procedure while the patient remained responsive to all verbal commands In the prone position, following sterile prep and drape of the lumbar region, the right L4, L5 and S1 anatomical location of the medial branch of the dorsal ramus was identified fluoroscopically. Subsequently an anesthetic skin wheal using 1% lidocaine solution was initiated at each of the anatomical spots. Subsequently then a 22-gauge 3.5-inch spinal needle was atraumatically introduced and advanced under fluoroscopic guidance at each of the corresponding sites at the right L4, L5 and S1 MB. After negative aspiration, 0.2 cc of Isovue 200 was injected, confirming placement without vascular or intrathecal uptake. Subsequently then 0.5 cc of 2% Lidocaine solution was injected at each of the corresponding sites at the right L4, L5 and S1 medial branch locations. The patient tolerated the procedure well without signs or symptoms of complications. The procedure tolerated the procedure well without signs or symptoms of complications prior to transfer to the recovery area continued monitoring without incident. Post-procedure, the patient was monitored initiating provocative activities to measure the amount of relief from block of the facetogenic pain. The patient reported a VAS of 7 prior to the procedure and a post-procedure VAS of 1. It has been a pleasure to assist in the diagnostic and therapeutic care of your patient. POST OP INSTRUCTIONS The patient was provided with a Pain Log to complete over the next several hours and subsequent days prior to the patient's follow up with the ordering physician. If the patient has certified ophthalmic technician relief to the solution applied, then they may be a candidate for medial branch rhizotomy. The patient is aware, was provided, once again, with a Pain Log and will follow up with the referring physician for review and clinical correlation.
[2025-01-20 12:10] VITALS: BP 120/65; PULSE 74; RESP 15; O2SAT 97
[2025-01-20 12:15] VITALS: BP 114/58; PULSE 73; RESP 16; O2SAT 98
== END 2025-01-20 12:24 | disposition home or self-care (01) ==
PROVIDERS: PCP Internal Medicine; Referring Provider Physical Medicine & Rehabilitation; Visit Provider Physical Medicine & Rehabilitation
DX: M47.816 Spondylosis without myelopathy or radiculopathy, lumbar region (principal); M47.817 Spondylosis without myelopathy or radiculopathy, lumbosacral region
CPT/HCPCS: 64493; 64494